=== PATIENT | female | born 1960 | race Caucasian/White ===

== ENCOUNTER → 2018-01-29 13:03 | Outpatient (CLI) | payer MEDICARE, MEDICAID, SELFPAY ==
--- NOTE | 2018-01-29 13:14 | RAD_ITS ---
STUDY: X-RAY - LUMBAR SPINE REASON FOR EXAM: Female, 57 years old. Unable to straighten hips stand straight 6-8 weeks. Difficulty walking. TECHNIQUE: 5 view(s) of the lumbar spine were obtained. COMPARISON: None FINDINGS: Normal lumbar lordosis. There is no substantial scoliosis. There is a normal alignment of the vertebrae. Minimal endplate spondylosis. Is minimal disc space narrowing at multiple levels. There is no evidence of acute fracture or loss of vertebral axial height. There is no demonstrated spondylolysis of the pars interarticulares. There is atherosclerotic calcification of the abdominal aorta without a demonstrated aneurysm. RAD/L/S Spine Min 4 Views IMPRESSION: Degenerative changes of the spine, as detailed above. Electronically Signed: Colt Mirza DO at 15:51 EDT Tel [phone], Service support ,
--- NOTE | 2018-01-29 13:14 | RAD_ITS ---
STUDY: X-RAY - PELVIS AND BILATERAL HIPS REASON FOR EXAM: Female, 57 years old. Unable to straighten the hips. Painful walking. TECHNIQUE: Radiological exam, hip, bilateral, with pelvis when performed; 3-4 views COMPARISON: None. FINDINGS: There is a large amount of feces seen within the colon. Normal visualized soft tissue structures. There are atherosclerotic vascular calcifications. Normal bilateral iliac wings, sacroiliac joints and visualized sacrum. Normal bilateral superior and inferior pubic rami. Normal pubic symphysis. Normal bilateral ischial tuberosities. Normal visualized right femoral head. Normal right acetabulum. Normal right hip joint. Normal visualized left femoral head. Normal left acetabulum. Normal left hip joint. RAD/Hips B/L min 2 views w/ Pelvis IMPRESSION: Normal x-ray examination of the pelvis and bilateral hips. Electronically Signed: Colt Mirza DO at 15:54 EDT Tel [phone], Service support ,
== END ==
PROVIDERS: Family Provider Family Medicine; PCP Family Medicine; Visit Provider Family Medicine
DX: M51.36 Other intervertebral disc degeneration, lumbar region (principal); M25.559 Pain in unspecified hip
CPT/HCPCS: 72110; 73521

== ENCOUNTER → 2018-02-18 15:29 | Outpatient (CLI) | payer MEDICARE, MEDICAID, SELFPAY ==
--- NOTE | 2018-02-18 15:32 | US_ITS ---
STUDY: THYROID ULTRASOUND REASON FOR EXAM: Female, 57 years old. Nodule TECHNIQUE: Ultrasound evaluation of the thyroid was performed with real-time and static bergman-scale imaging. COMPARISON: None. FINDINGS: RIGHT LOBE: The right lobe of the thyroid gland measures 4.7 x 2.2 x 2.5 cm. There is a homogeneous echotexture. There are no demonstrated solid, cystic or complex lesions. LEFT LOBE: The left lobe of the thyroid gland measures 3.6 x 1.4 x 1.7 cm. There is a homogeneous echotexture. There are no demonstrated solid, cystic or complex lesions. ISTHMUS: The isthmus measures 3 mm . The regional lymph nodes are normal. US/Thyroid IMPRESSION: Normal ultrasound examination of the thyroid. Electronically Signed: Eris De Dios MD at 21:33 EDT , Service support ,
== END ==
PROVIDERS: Family Provider Family Medicine; PCP Family Medicine; Visit Provider Family Medicine
DX: E04.1 Nontoxic single thyroid nodule (principal)
CPT/HCPCS: 76536

== ENCOUNTER → 2018-11-14 13:06 | Outpatient (CLI) | payer MEDICARE, MEDICAID, SELFPAY ==
--- NOTE | 2018-11-14 13:08 | RAD_ITS ---
STUDY: X-RAY - RIGHT KNEE REASON FOR EXAM: Female, 58 years old. Chronic knee pain. TECHNIQUE: 4 view(s) of the knee. COMPARISON: None. FINDINGS: There is generalized osteopenia. Normal visualized distal femur. Normal visualized proximal tibia and fibula. Normal proximal tibiofibular articulation. There is mild medial compartmental arthrosis. Normal lateral femorotibial compartment. Normal patellofemoral articulation. The soft tissue structures are unremarkable. RAD/Knee 4 or More Views IMPRESSION: Osteopenia with medial compartmental arthrosis. Electronically Signed: Hao Dove MD at 18:00 EDT , Service support ,
--- NOTE | 2018-11-14 13:08 | RAD_ITS ---
STUDY: X-RAY - LEFT KNEE REASON FOR EXAM: Chronic pain, unable to straighten. TECHNIQUE: 4 view(s) of the knee. COMPARISON: None. FINDINGS: There is osteopenia. Normal visualized distal femur. Normal visualized proximal tibia and fibula. Normal proximal tibiofibular articulation. Normal medial femorotibial compartment. Normal lateral femorotibial compartment. Normal patellofemoral articulation. There is vascular calcification. RAD/Knee 4 or More Views IMPRESSION: Osteopenia. Vascular calcification. Otherwise, unremarkable x-ray examination of the left knee. Electronically Signed: Rock Alanis MD at 13:34 EDT Tel , Service support ,
== END ==
PROVIDERS: Family Provider Family Medicine; PCP Family Medicine; Referring Provider Orthopaedic Surgery; Visit Provider Orthopaedic Surgery
DX: M25.562 Pain in left knee (principal); M25.561 Pain in right knee; G89.29 Other chronic pain
CPT/HCPCS: 73564

== ENCOUNTER 2021-06-03 22:19 | Inpatient (IN) | payer MEDICARE, MEDICAID, SELFPAY ==
[2021-06-03 22:20] VITALS: BP 166/99; PULSE 97; RESP 20; TEMP 36.3; O2SAT 98; BMI 19.0
[2021-06-03 22:35] VITALS: TEMP 36.2; O2SAT 97
--- NOTE | 2021-06-03 22:35 | CT_ITS ---
INDICATION: mental status change EXAMINATION: CT BRAIN - CT Head or Brain W/O Contrast Injection TECHNIQUE: Multiple axial images were obtained of the head without intravenous contrast. A radiation dose optimization technique was used for this scan. IV Contrast dosage and agent: None. COMPARISON: No prior head imaging. FINDINGS: BRAIN PARENCHYMA: No intra- or extra-axial hemorrhage. No evidence of acute infarct. No intracranial mass or mass effect. There is preservation of the bergman/white matter interface. There is decreased periventricular white matter hypodensity, especially in the deep periventricular white matter, likely representing chronic small vessel ischemic changes. No hyperdense vessel or other evidence of acute ischemia. Extra-axial, right frontal lobe calcific density, abutting the calvarium, 1.2 cm maximum dimension. Normal adjacent parenchyma. Posterior fossa structures are unremarkable. CSF SPACES: Appropriate for age. No hydrocephalus. Basal cisterns are patent. CALVARIUM, SKULL BASE, PARANASAL SINUSES AND MASTOID AIR CELLS: Clear. No discrete lytic or blastic abnormalities. ORBITS: Both globes, extraocular muscles, optic nerves and retrobulbar fat appear unremarkable. ASPECTS Score for Acute Strokes: 10 CT/Brain/Head without Contrast IMPRESSION: No acute intracranial pathology. Mild decreased periventricular white matter density suggesting chronic small vessel ischemic changes. Extra axial right frontal lobe calcification suggesting old, calcified meningioma. Benign finding. Electronically Signed: Toni Hernandez DO at 0:42 EDT Tel , Service support ,
--- NOTE | 2021-06-03 22:35 | RAD_ITS ---
INDICATION: weakness EXAMINATION/TECHNIQUE: X-RAY - XR Chest 1 View COMPARISON: Chest x-ray 12/11/2016. FINDINGS: LINES/DEVICES: None. LUNGS: Symmetrically increased lung volumes consistent with air trapping and mild hyperlucency in the upper lobes consistent with moderately advanced emphysematous disease. No airspace disease, nodule or mass. No pleural effusion. No pneumothorax. MEDIASTINUM AND CARDIOVASCULAR STRUCTURES: Normal size and contour of the cardiomediastinal silhouette. No evidence of pulmonary vascular congestion. BONES AND SOFT TISSUES: No abnormality within limits of the exam. RAD/Chest 1 View (Portable) IMPRESSION: 1. Moderately advanced emphysematous disease. 2. Lungs otherwise clear. Electronically Signed: Toni Hernandez DO at 0:28 EDT Tel , Service support ,
--- NOTE | 2021-06-03 22:35 | EKG12_ITS ---
Test Reason : Blood Pressure : / mmHG Vent. Rate : 102 BPM Atrial Rate : 102 BPM P-R Int : 174 ms QRS Dur : 086 ms QT Int : 308 ms P-R-T Axes : 081 080 075 degrees QTc Int : 401 ms Somatic/Motion Artifact Sinus tachycardia Biatrial enlargement Left ventricular hypertrophy Nonspecific ST and T wave abnormality Abnormal ECG Confirmed by SYMONE ALEMAN, MILTON ([id number]), video news editor ALEXANDER ALLEN ([id number]) on 06/07/2021 9:20:37 AM Referred By: RENETTA Confirmed By:MILTON ASHBY MD
--- NOTE | 2021-06-03 22:37 | EX.ED.DYSGE1 ---
HPI History of Present Illness Chief Complaint: Alt LOC Informant: EMS Narrative Narrative: Patient has been extremely weak and confused, myalgias, unknown period of time. She lives with a family member who called EMS, she told EMS she did not want to go to the hospital but she was very confused and did not have the capacity to make decision for self, family wanted her cared for and they are not present at this time the patient nods in response but answers very few questions and review of systems is basically unobtainable from her. [facility] Medical History (Updated 06/04/21 @ 01:[address] Cortez Morrison MD) COPD (chronic obstructive pulmonary disease) H/O frozen left shoulder HTN (hypertension) Medical History unable to obtain Home Medications albuterol sulfate 2 puff INHALATION DAILY 06/03/21 [History Last Taken Unknown] fluticasone propion-salmeterol [Advair Diskus] 1 inh INHALATION BID 06/03/21 [History Last Taken Unknown] lisinopril 20 mg PO DAILY 06/03/21 [History Last Taken Unknown] umeclidinium [Incruse Ellipta] 1 inh INHALATION DAILY 06/03/21 [History Last Taken Unknown] Allergy/AdvReac Type Severity Reaction Status Date / Time No Known Allergies Allergy Verified 06/03/21 22:30 Surgical History unable to obtain Social History Smoking Status: Current every day smoker tobacco type: cigarettes ROS ROS ED Review of Systems ROS Unobtainable: due to mental status EXAM Physical Exam Const Vital Signs: 06/03/21 22:20 06/03/21 22:35 06/03/21 22:39 Temperature 97.4 F L 97.1 F L Temperature Source Temporal Temporal Pulse Rate 97 Respiratory Rate 20 H Respiratory Effort Normal Respiratory Pattern Normal Blood Pressure 166/99 H Blood Pressure Mean 121 Pulse Ox 98 97 Oxygen Delivery Method Nasal Cannula Nasal Cannula Oxygen Flow Rate (L/min) 3 3 Fraction of Inspired Oxygen (FIO2) 06/03/21 22:43 06/03/21 23:44 06/03/21 23:45 Temperature 98.1 F Temperature Source Temporal Pulse Rate 104 H Respiratory Rate 15 Respiratory Effort Respiratory Pattern Blood Pressure 172/81 H Blood Pressure Mean 111 Pulse Ox 91 94 Oxygen Delivery Method Nasal Cannula Nasal Cannula Oxygen Flow Rate (L/min) 3 3 Fraction of Inspired Oxygen (FIO2) 06/04/21 00:04 06/04/21 00:07 06/04/21 00:08 Temperature 98.1 F Temperature Source Temporal Pulse Rate 100 102 H Respiratory Rate 22 H 27 H Respiratory Effort Respiratory Pattern Tachypnea Blood Pressure 178/86 H Blood Pressure Mean 116 Pulse Ox 82 96 Oxygen Delivery Method Oxygen Flow Rate (L/min) Fraction of Inspired Oxygen (FIO2) 45 Positive well nourished, well developed and cachectic Constitutional Narrative: Malaised-appearing, no distress General Appearance ED: well developed, cachectic and NAD Nutritional Appearance: cachectic HEENT Reports moist mucous membranes normocephalic and atraumatic Eyes PERRL and EOMs intact bilaterally Neck full ROM and supple Resp normal respiratory effort and clear to auscultation bilaterally Resp Narrative: Extremely diminished bilaterally and symmetrically. Trachea midline. No respiratory distress. Cardio regular rate and regular rhythm Cardio Narrative: Systolic decrescendo murmur Rate: Negative for tachycardic GI non-tender and non-distended Auscultation: normoactive bowel sounds Palpation: soft Back/Spine no CVA tenderness General Back: other FROM Extremity normal to inspection and no calf tenderness General Extremety ED: Negative for edema, pulses abnormal or tenderness General Extremity: Negative for edema or pulses abnormal Neuro CN's II-XII intact bilaterally and no sensory deficits noted Neuro Narrative: Does not speak in response to questions. Nods yes that she is feeling very weak. Moves all 4 extremities and sensory intact, but very limited effort and movement due to generalized weakness limiting exam. [place] Coma Scale: document GCS findings To Voice Obeys Commands None 10 Sensorium / Orientation: awake, alert, oriented to person and orientation impaired; Negative for oriented to place or oriented to time Motor Exam: strength 5/5 throughout Skin no rashes or lesions noted and no wounds MDM MDM MDM Narrative Medical decision making narrative: Septic work-up obtained as well as a CT of the head. Screening labs show a bicarb that is extremely high suggestive of severe CO2 retention and a COPD here who has chronic CO2 retention at baseline. An ABG was obtained then, she was immediately placed on BiPAP, the ABG confirms hypercapnia with a PCO2 of 166, and pH 7.215. Oxygenation is good on a nasal cannula and she is in no respiratory distress so we did not intubate her and place her on BiPAP, which resulted in her becoming more alert in the emergency department. EKG shows artifactual findings in leads V3 and V4, the EMS EKGs did not show any STEMI, and I do not think this is consistent with STEMI although the ST segments do look elevated and are inconsistent from beat to beat. Therefore did not call a STEMI, troponin returned within normal limits. Chest x-ray shows no infiltrate at this time. She was given Solu-Medrol discussed with hospitalist for PCU admission. Discussed w/ sister who arrived later; pt has been debilitated recently w/ worsening BLE contractures and inability to walk. Lab Data Attestation: I reviewed the patient's lab results. Labs: Laboratory Results - last 24 hr 06/03/21 06/03/21 06/03/21 22:40 22:40 22:40 WBC 6.8 RBC 3.92 L Hgb 12.5 Hct 43.7 MCV 111.5 H MCH 31.9 MCHC 28.6 L RDW Std Deviation 51.7 H RDW Coeff of Rachell 12.5 Plt Count 137 L MPV 10.4 Immature Gran % (Auto) 2.900 H Neut % (Auto) 72.4 H Lymph % (Auto) 9.4 L [place] % (Auto) 14.7 H Eos % (Auto) 0.0 Baso % (Auto) 0.6 Absolute Neuts (auto) 4.9 Absolute Lymphs (auto) 0.64 L Nucleated RBC % 0 Sodium 142 Potassium 5.1 Chloride 87 L Carbon Dioxide > 45.0 H* Anion Gap TNP BUN 17 Creatinine 0.28 L Estim Creat Clear Calc 165.58 Est GFR (MDRD) Af Amer 308 Est GFR (MDRD) Non-Af 255 BUN/Creatinine Ratio 59.9 H Glucose 121 H Lactic Acid 0.4 Calcium 9.5 Total Bilirubin 0.40 AST 27 ALT 23 Alkaline Phosphatase 70 Troponin I High Sens Total Protein 7.1 Albumin 3.7 Globulin 3.4 Albumin/Globulin Ratio 1.1 Urine Color Urine Clarity Urine pH Ur Specific [place] Urine Protein Urine Glucose (UA) Urine Ketones Urine Occult Blood Urine Nitrite Urine Bilirubin Urine Urobilinogen Ur Leukocyte Esterase Urine RBC Urine WBC Ur Squamous Epith Cells Amorphous Sediment Urine Bacteria Hyaline Casts Urine Mucus 06/03/21 06/03/21 22:40 22:56 WBC RBC Hgb Hct MCV MCH MCHC RDW Std Deviation RDW Coeff of Rachell Plt Count MPV Immature Gran % (Auto) Neut % (Auto) Lymph % (Auto) [place] % (Auto) Eos % (Auto) Baso % (Auto) Absolute Neuts (auto) Absolute Lymphs (auto) Nucleated RBC % Sodium Potassium Chloride Carbon Dioxide Anion Gap BUN Creatinine Estim Creat Clear Calc Est GFR (MDRD) Af Amer Est GFR (MDRD) Non-Af BUN/Creatinine Ratio Glucose Lactic Acid Calcium Total Bilirubin AST ALT Alkaline Phosphatase Troponin I High Sens 20 Total Protein Albumin Globulin Albumin/Globulin Ratio Urine Color Yellow Urine Clarity Clear Urine pH 5.0 Ur Specific [place] 1.025 Urine Protein 100 H Urine Glucose (UA) Normal Urine Ketones 5 H Urine Occult Blood 250 H Urine Nitrite Negative Urine Bilirubin Negative Urine Urobilinogen 1 H Ur Leukocyte Esterase Negative Urine RBC 10-25 SEEN Urine WBC 0 SEEN Ur Squamous Epith Cells 0-5 SEEN Amorphous Sediment 1+ Urine Bacteria 2+ Hyaline Casts 10-25 SEEN Urine Mucus 1+ Radiography Chest X-Ray - ED: 1 View, Read by ED Physician, No Acute Disease and Chronic Changes Diagnostic Testing: Clinical Impression(s) from Imaging Studies Brain CT 06/03/21 22:35 IMPRESSION: No acute intracranial pathology. Mild decreased periventricular white matter density suggesting chronic small vessel ischemic changes. Extra axial right frontal lobe calcification suggesting old, calcified meningioma. Benign finding. Electronically Signed: Toni Hernandez DO at 0:42 EDT Tel , Service support , Chest X-Ray 06/03/21 22:35 IMPRESSION: 1. Moderately advanced emphysematous disease. 2. Lungs otherwise clear. Electronically Signed: Toni Hernandez DO at 0:28 EDT Tel , Service support , EKG Initial EKG: Attestation: I personally reviewed and interpreted this EKG as follows: Interpretation: Sinus Rhythm, No Acute Injury Pattern and S-T Elevation (V3-4, likely artifactual) Discharge Plan Triage Chief Complaint: Alt LOC Other Complaint: Mental Status Change ED Provider: Cortez Morrison Dx/Rx/DC Orders Clinical Impression: Acute hypercapnic respiratory failure, Encephalopathy acute, COPD with acute exacerbation, Debility Prescriptions: No Action fluticasone propion-salmeterol [Advair Diskus] 250-50 mcg/dose Blister With Device 1 inh INHALATION BID RF: 0 lisinopril 20 mg Tablet 20 mg PO DAILY RF: 0 albuterol sulfate 90 mcg/actuation Hfa Aerosol Inhaler 2 puff INHALATION DAILY RF: 0 Incruse Ellipta 62.5 mcg/actuation Blister With Device 1 inh INHALATION DAILY RF: 0 Primary Care Provider: Care Physician,No Primary Referrals: Care Physician,No Primary [Primary Care Provider] - Disposition Disposition: Acute Care Hospital
[2021-06-03 22:43] VITALS: O2SAT 91
--- NOTE | 2021-06-03 22:46 | ED.RN ---
twin sister present. reports pt has has progressively more sob and weakness. pt has been falling. does use a wc but usually can tranfer in and out of it and has been falling when doing so lately. lethargic.
[2021-06-03] MEDS: 0.9% Normal Saline 1,000 ML 100 ML IV (22:49)
[2021-06-03 23:11] LABS: White Blood Cells 0 SEEN /hpf (0-5)
[2021-06-03 23:14] LABS: Color, Urine Yellow (Yellow); Glucose, Dipstick Normal (Normal); Ketone-Dipstick 5 mg/dl (Negative); Leukocyte Esterase-Dipstick Negative /ul (Negative); Nitrite-Dipstick Negative (Negative); Occult Blood-Urine 250 /ul (Negative); Protein-Dipstick 100 mg/dl (Negative); Specific Gravity, Urine 1.025 (1.002-1.030); Urine Bilirubin Dipstick Negative (Negative); Urine Clarity Clear (Clear); Urine Urobilinogen 1 mg/dl (Normal)
[2021-06-03 23:24] LABS: Absolute Lymphocyte Count 0.64 X10^3/uL (0.83-4.51); Absolute Neutrophil Count 4.9 X10^3/uL (2.0-7.7); Basophil# 0.04 X10^3/uL; Basophil% 0.6 % (0-1); Hematocrit 43.7 % (37-47); Hemoglobin 12.5 g/dL (12.0-15.0); Lymphocyte # 0.64 X10^3/ul (0.83-4.51); Lymphocyte % 9.4 % (19-41); Mean Corp Hgb Conc 28.6 g/dL (32-36); Mean Corpuscular Hgb 31.9 pg (27.0-32.0); Mean Corpuscular Volume 111.5 fL (81-99); Mean Platelet Vol. 10.4 fl (6.2-12.0); Monocyte% 14.7 % (0-10); NRBC Flagged by Analyzer 0 % (0-5); Neutrophil # 4.92 X10^3/uL (2.7-7.7); Neutrophil % 72.4 % (47-70); Platelet Count 137 K/mm3 (150-450); RBC Distribution Width CV 12.5 % (11.6-14.6); RBC Distribution Width SD 51.7 fl (35.1-43.9); Red Blood Count 3.92 M/mm3 (4.2-5.4); White Blood Count 6.8 K/mm3 (4.4-11.0)
[2021-06-03 23:27] LABS: Amorphous Sediment 1+; Bacteria 2+ /hpf (None Seen); Hyaline Cast 10-25 SEEN /lpf (0-5); Mucous, Urine 1+ /hpf (<or=2+); Red Blood Cells-Urine 10-25 SEEN /hpf (0-5); Squamous Epithelial Cells - UA 0-5 SEEN /hpf (5-10)
[2021-06-03 23:28] LABS: ALB/GLOB Ratio 1.1 RATIO (0.9-2.4); AST(SGOT) 27 U/L (15-37); Alanine Aminotransfer ALT/SGPT 23 U/L (13-56); Albumin, Serum 3.7 g/dL (3.2-5.0); Alkaline Phosphatase 70 U/L (45-117); BUN 17 mg/dL (7-18); BUN/Creat Ratio 59.9 RATIO (10-20); Calcium,Total 9.5 mg/dL (8.5-10.1); Carbon Dioxide > 45.0 mmol/L (21.0-32.0); Chloride 87 mmol/L (98-107); Creatinine, Serum 0.28 mg/dL (0.55-1.02); EST Glomerular Filtration Rate 255 mL/min (>60); Est Glom Filt Rate - Afr Amer 308 mL/min (>60); Estimated Creatinine Clearance 165.58 ml/min; Globulin 3.4 g/dL (2.2-4.2); Glucose 121 mg/dL (74-106); Potassium 5.1 mmol/L (3.5-5.1); Protein, Total 7.1 g/dL (6.4-8.2); Sodium Level 142 mmol/L (136-145)
[2021-06-03 23:29] LABS: Lactic Acid 0.4 mmol/L (0.4-1.9)
[2021-06-03 23:44] VITALS: TEMP 36.7
[2021-06-03 23:45] VITALS: BP 172/81; PULSE 104; RESP 15; O2SAT 94
[2021-06-04] VITALS (23 sets, daily range): BP systolic 112–178; BP diastolic 64–97; PULSE 100–120; RESP 16–27; TEMP 36.4–37.5; O2SAT 82–96; BMI 17.9
--- NOTE | 2021-06-04 00:05 | ED.RN ---
pt sats decreaed progressively to 82%. placed on nrb sats 96%. called respiratory for bipap
--- NOTE | 2021-06-04 00:08 | CPS ---
Critical ABG values, Dr. Morrison aware.
[2021-06-04] MEDS: MethylPREDNISolone 125 MG/2 ML Vial IV (00:40)
[2021-06-04 00:56] LABS: Troponin-I HS 20 pg/mL (3.0-54.0)
--- NOTE | 2021-06-04 01:15 | HP.PCM_ITS ---
Documented by User: Martha De Los Santos NP-C 06/04/21 01:29 HPI - General General Date of Admission: 06/04/21 Date of Service: 06/04/21 Chief Complaint: Altered mental status HPI Narrative ARTURO CURRY, is a 60 F who presents extremely weak and confused. EMS states that her family called because they were concerned about her mental status and the fact that the patient was not responsive. Patient continues to be confused ever she is more alert during examination. Sister at bedside states that she would want everything done in regards to CODE STATUS. Patient is currently on BiPAP, no distress noted. [facility] Medical History COPD (chronic obstructive pulmonary disease) H/O frozen left shoulder HTN (hypertension) Medical History unable to obtain Home Medications albuterol sulfate 2 puff INHALATION DAILY 06/03/21 [History Last Taken Unknown] fluticasone propion-salmeterol [Advair Diskus] 1 inh INHALATION BID 06/03/21 [History Last Taken Unknown] lisinopril 20 mg PO DAILY 06/03/21 [History Last Taken Unknown] umeclidinium [Incruse Ellipta] 1 inh INHALATION DAILY 06/03/21 [History Last Taken Unknown] Allergy/AdvReac Type Severity Reaction Status Date / Time No Known Allergies Allergy Verified 06/03/21 22:30 Surgical History unable to obtain no surgical history Social History Smoking Status: Current every day smoker tobacco type: cigarettes ROS Review of Systems ROS Unobtainable: due to mental status Vital Signs Vital Signs Vital Signs: 06/03/21 22:20 06/03/21 22:35 06/03/21 22:39 Temperature 97.4 F L 97.1 F L Temperature Source Temporal Temporal Pulse Rate 97 Respiratory Rate 20 H Respiratory Effort Normal Respiratory Pattern Normal Blood Pressure 166/99 H Blood Pressure Mean 121 Pulse Ox 98 97 Oxygen Delivery Method Nasal Cannula Nasal Cannula Oxygen Flow Rate (L/min) 3 3 Fraction of Inspired Oxygen (FIO2) 06/03/21 22:43 06/03/21 23:44 06/03/21 23:45 Temperature 98.1 F Temperature Source Temporal Pulse Rate 104 H Respiratory Rate 15 Respiratory Effort Respiratory Pattern Blood Pressure 172/81 H Blood Pressure Mean 111 Pulse Ox 91 94 Oxygen Delivery Method Nasal Cannula Nasal Cannula Oxygen Flow Rate (L/min) 3 3 Fraction of Inspired Oxygen (FIO2) 06/04/21 00:04 06/04/21 00:07 06/04/21 00:08 Temperature 98.1 F Temperature Source Temporal Pulse Rate 100 102 H Respiratory Rate 22 H 27 H Respiratory Effort Respiratory Pattern Tachypnea Blood Pressure 178/86 H Blood Pressure Mean 116 Pulse Ox 82 96 Oxygen Delivery Method Oxygen Flow Rate (L/min) Fraction of Inspired Oxygen (FIO2) 45 Weight Weight: 111 lb Body Mass Index (BMI) 19.0 Physical Exam Const alert and no apparent distress General Appearance: cooperative and frail Exam Limitations: altered mental status HEENT normocephalic and head/scalp atraumatic Eyes conjunctivae normal and no scleral icterus Neck supple General: trachea midline Resp Effort and Inspection: symmetric chest movement, tachypneic and decreased respiratory effort Auscultation: diminished lung sounds Cardio regular rate, regular rhythm, S1 normal heart sound, S2 normal heart sound and peripheral pulses 2+ throughout Rate: tachycardic GI normal to inspection, nondistended, normoactive bowel sounds, soft to palpation and non-tender Extremity normal capillary refill and no clubbing, cyanosis or edema General Extremity: no tenderness to palpation of joints or extremities Skin General Skin Exam: no breakdown and turgor normal Lesions: no lesions Rashes: no rashes Neuro moves all extremities, no focal motor deficits and no sensory deficits noted Psych cooperative Results Lab / Micro Data Result Diagrams: 06/03/21 22:40 06/03/21 22:40 Labs: Laboratory Results - last 24 hr 06/03/21 22:40: WBC 6.8, RBC 3.92 L, Hgb 12.5, Hct 43.7, MCV 111.5 H, MCH 31.9, MCHC 28.6 L, RDW Std Deviation 51.7 H, RDW Coeff of Rachell 12.5, Plt Count 137 L, MPV 10.4, Immature Gran % (Auto) 2.900 H, Neut % (Auto) 72.4 H, Lymph % (Auto) 9.4 L, Coos % (Auto) 14.7 H, Eos % (Auto) 0.0, Baso % (Auto) 0.6, Absolute Neuts (auto) 4.9, Absolute Lymphs (auto) 0.64 L, Nucleated RBC % 0 06/03/21 22:40: Sodium 142, Potassium 5.1, Chloride 87 L, Carbon Dioxide > 45.0 H*, Anion Gap TNP, BUN 17, Creatinine 0.28 L, Estim Creat Clear Calc 165.58, Est GFR (MDRD) Af Amer 308, Est GFR (MDRD) Non-Af 255, BUN/Creatinine Ratio 59.9 H, Glucose 121 H, Calcium 9.5, Total Bilirubin 0.40, AST 27, ALT 23, Alkaline Phosphatase 70, Total Protein 7.1, Albumin 3.7, Globulin 3.4, Albumin/Globulin Ratio 1.1 06/03/21 22:40: Lactic Acid 0.4 06/03/21 22:40: Troponin I High Sens 20 06/03/21 22:56: Urine Color Yellow, Urine Clarity Clear, Urine pH 5.0, Ur Specific [place] 1.025, Urine Protein 100 H, Urine Glucose (UA) Normal, Urine Ketones 5 H, Urine Occult Blood 250 H, Urine Nitrite Negative, Urine Bilirubin Negative, Urine Urobilinogen 1 H, Ur Leukocyte Esterase Negative, Urine RBC 10- 25 SEEN, Urine WBC 0 SEEN, Ur Squamous Epith Cells 0-5 SEEN, Amorphous Sediment 1+, Urine Bacteria 2+, Hyaline Casts 10-25 SEEN, Urine Mucus 1+ Micro: Microbiology 06/03/21 22:53 Interface Orders SARS-CoV-2 Antigen (Rapid) - Final Radiology Impression Brain CT 06/03/21 22:35 IMPRESSION: No acute intracranial pathology. Mild decreased periventricular white matter density suggesting chronic small vessel ischemic changes. Extra axial right frontal lobe calcification suggesting old, calcified meningioma. Benign finding. Electronically Signed: Toni Hernandez DO at 0:42 EDT Tel , Service support , Chest X-Ray 06/03/21 22:35 IMPRESSION: 1. Moderately advanced emphysematous disease. 2. Lungs otherwise clear. Electronically Signed: Toni Hernandez DO at 0:28 EDT Tel , Service support , Assessment & Plan Assessment/Plan (1) Acute hypercapnic respiratory failure: (2) Debility: PLAN: 1. Acute hypercapnic respiratory failure secondary to COPD exacerbation -Admit to PCU -Continue BiPAP, oxygen therapy per protocol. Patient wears 3 L nasal cannula oxygen at baseline -Encourage incentive spirometry and Pep therapy once patient is off BiPAP -Sputum culture and blood cultures pending -ABG ordered for 2 AM approximately 2 hours after patient was placed on BiPAP -CBC and BMP daily -Scheduled DuoNeb nebulizer treatments along with as needed albuterol nebulizer treatments ordered -Continue Advair Diskus -IV Solu-Medrol -IV Levaquin ordered -Maintain Buenrostro catheter -Normal saline 100 mL/h -Reposition every 2 hours 2. Debility -PT and OT to eval and treat -Case management consulted for probable ECF placement upon discharge 3. Hypertension -Continue lisinopril -Vital signs per protocol DVT prophylaxis-subcu Lovenox This patient was seen by SANTINO Preciado under the supervision of Dr. Fajardo. Documented by User: Dr. Stanford Fajardo MD 06/04/21 02:08 HPI - General General Date of Admission: 06/04/21 [facility] Medical History COPD (chronic obstructive pulmonary disease) H/O frozen left shoulder HTN (hypertension) Medical History unable to obtain Home Medications albuterol sulfate 2 puff INHALATION DAILY 06/03/21 [History Last Taken Unknown] fluticasone propion-salmeterol [Advair Diskus] 1 inh INHALATION BID 06/03/21 [History Last Taken Unknown] lisinopril 20 mg PO DAILY 06/03/21 [History Last Taken Unknown] umeclidinium [Incruse Ellipta] 1 inh INHALATION DAILY 06/03/21 [History Last Taken Unknown] Allergy/AdvReac Type Severity Reaction Status Date / Time No Known Allergies Allergy Verified 06/03/21 22:30 Surgical History unable to obtain Social History Smoking Status: Current every day smoker tobacco type: cigarettes Results Lab / Micro Data Result Diagrams: 06/03/21 22:40 06/03/21 22:40 Charges/Coding Addendum Addendum: Patient was seen and examined independently. I agree with assessment and plan by SANTINO Preciado Patient is a 60-year-old female with a significant history of COPD on 3.5 L nasal cannula oxygen; and hypertension who presents to the emergency department with 1 day history of progressively worsening lethargy. Reportedly patient stayed in bed all day; and even urinated in her bed which is unusual for her. She became incoherent later in the day. Reported patient had multiple falls in the week of presentation. Physical exam: General: Cachectic Head: Normocephalic, atraumatic, no tenderness Eyes: PERRLA, EOMI ENT, no trauma, no rhinorrhea Neck: Nontender, full range of motion, no spinal tenderness, deformities, step- off CVS: Tachycardia . S1-S2 present. No murmur, gallop or rub. Respiratory : Diminished. chest wall nontender. Abdomen: Soft, nontender, nondistended, normal bowel sounds, no masses : Deferred Back: Nontender, no CVA tenderness, no midline spinal tenderness, deformities, step-offs Extremities: Cachectic with muscle wasting. Nontender full range of motion, no trauma Skin: Normal color, no trauma, abrasions Neuro: Lethargic, oriented, cranial nerves II through XII grossly intact. Psychiatry: Non-talkative. Depressed. Acute encephalopathy secondary to acute on chronic hypoxemic and hypercapnic respiratory failure ABG showed a PCO2 of 165.9 and PO2 of 46.1. pH is 7.215. Bicarb on BMP was more than 45 Patient on BiPAP at emergency department and continued. Solu-Medrol around the clock ordered. DuoNeb [id number] ordered. Albuterol prn ordered. Levaquin IV ordered. Severe protein calorie malnutrition BMI of 17.9. Muscle wasting. Ensure Enlive ordered. Hypertension Blood pressure is not within goal Lisinopril continued. As needed hydralazine ordered. Trend blood pressure and adjust blood pressure medications. DVT prophylaxis: Subcutaneous Lovenox ordered. Visit Charges Inpatient E&M: 18493 Init Hosp L3
[2021-06-04] MEDS: levoFLOXacin IV 500 MG/100 ML BAG 100 MG IV ×2 (02:08→21:08)
[2021-06-04 03:02] LABS: Troponin-I HS 11 pg/mL (3.0-54.0)
--- NOTE | 2021-06-04 03:05 | PCS.PANDOC ---
PANDEMIC DOCUMENTATION INITIATED: Date: 03/21/2021 Time: 190
--- NOTE | 2021-06-04 04:23 | CPS ---
Critical ABG values noted. Martha De Los Santos PROPERTY LOSS INSURANCE CLAIM ADJUSTER notified
[2021-06-04 04:46] LABS: Allen Test POS; Blood Gas Specimen Type ART; O2 Delivery Device Bi Pap; RR 16; SITE L RADIAL
[2021-06-04 04:47] LABS: EPAP 8; FI02 45; IPAP 16; PO2 71 mmHG (75-100); pCO2 96.6 mmHg (35-45); pH 7.36 (7.35-7.45)
[2021-06-04 04:48] LABS: Base Excess 29 mmol/L (-2 to +2); Bicarbonate 54.5 mmol/L (22-26); SO2 91 % (95-99); Total Carbon Dioxide > 50 mmol/L
[2021-06-04 05:20] LABS: Absolute Lymphocyte Count 0.19 X10^3/uL (0.83-4.51); Absolute Neutrophil Count 6.8 X10^3/uL (2.0-7.7); Basophil# 0.02 X10^3/uL; Basophil% 0.3 % (0-1); Hematocrit 37.5 % (37-47); Hemoglobin 10.5 g/dL (12.0-15.0); Lymphocyte # 0.19 X10^3/ul (0.83-4.51); Lymphocyte % 2.7 % (19-41); Mean Corpuscular Hgb 31.3 pg (27.0-32.0); Mean Corpuscular Volume 111.9 fL (81-99); Mean Platelet Vol. 10.2 fl (6.2-12.0); Monocyte# 0.13 X10^3/uL; Monocyte% 1.8 % (0-10); NRBC Flagged by Analyzer 0 % (0-5); Neutrophil # 6.77 X10^3/uL (2.7-7.7); Neutrophil % 94.6 % (47-70); POSITIVE DIFFERENTIAL YES; Platelet Count 123 K/mm3 (150-450); RBC Distribution Width CV 12.4 % (11.6-14.6); RBC Distribution Width SD 51.6 fl (35.1-43.9); Red Blood Count 3.35 M/mm3 (4.2-5.4); White Blood Count 7.2 K/mm3 (4.4-11.0)
[2021-06-04 05:21] LABS: Differential Indicated SCAN CRITERIA MET
[2021-06-04 05:32] LABS: Differential Comment SCANNED; Hypochromasia RARE
[2021-06-04 05:35] LABS: Troponin-I HS 21 pg/mL (3.0-54.0)
[2021-06-04 05:46] LABS: BUN 21 mg/dL (7-18); BUN/Creat Ratio 63.8 RATIO (10-20); Carbon Dioxide > 45.0 mmol/L (21.0-32.0); Chloride 91 mmol/L (98-107); Creatinine, Serum 0.33 mg/dL (0.55-1.02); EST Glomerular Filtration Rate 215 mL/min (>60); Est Glom Filt Rate - Afr Amer 260 mL/min (>60); Estimated Creatinine Clearance 131.71 ml/min; Glucose 121 mg/dL (74-106); Potassium 4.9 mmol/L (3.5-5.1); Sodium Level 142 mmol/L (136-145)
[2021-06-04 06:50] LABS: Allen Test Positive; Base Excess > 30 mmol/L (-2 to +2); Bicarbonate 67.1 mmol/L (22-26); Blood Gas Specimen Type ART; O2 Delivery Device Cannula; PO2 46 mmHG (75-100); SITE R Radial; SO2 64 % (95-99); Total Carbon Dioxide > 50 mmol/L; pH 7.22 (7.35-7.45)
[2021-06-04 07:01] LABS: pCO2 165.9 mmHg (35-45)
[2021-06-04] MEDS: Ipratropium/Albuterol Sulfate 3 ML AMPUL.NEB INHALATION ×4 (07:25→19:38)
--- NOTE | 2021-06-04 08:49 | CPS ---
pt placed on 4 lpm. saturation 93%. nurse aware of change
[2021-06-04] MEDS: 0.9% Normal Saline 1,000 ML 100 ML IV ×2 (09:27→18:49)
--- NOTE | 2021-06-04 14:15 | CASEMGMT ---
Addendum entered by Aliyah Greene 06/04/21 15:15: Charli, son, reports that patient will sometimes not smoke any and then sometimes will role a cigarettes but just takes a couple of puffs. Aliyah Greene MSW ESCOBAR Original Note: MARCUS Note Referral Source: CM Referral Reason: Discharge Planning Information Source: Patient's son, Charli. MARCUS met with patient's son in the lobby at [facility] (no other patient's or family members were present and son was comfortable with the interview setting Family Present: SonCharli Next of Kin: SonCharli Living Will/HCPOA: Charli said that patient has completed the HCPOA/Living Will but was scheduled to sign it on 06/06/21. Charli said that the Home Health Aide had made arrangements for the Advanced Directives to be completed. The Advanced Directives are NOT signed. PCP Name: Charli said that he is unsure of the name of the MD that comes to the home. Charli said I live with her but I have let the aide deal with her medical things and indicated that he is aware that he needs to be more involved with medical information. Specialist: None per son Insurance: [employer] Pharmacy: [place] Patient resides in [address] [facility]. Patient's son, Charli and his girlfriend reside with patient. Charli said brenden the works first shift doing lawn care and his girlfriend is a DATA ENTRY TECHNICIAN working 3rd shift at [facility] [employer]. Charli indicated that there is one little step into the house and everything else is on the same floor. ADL's: Charli said that patient has not been able to stand or walk straight and he felt it was related to her never straightened her knees out.. her knees are always bent. Charli said that patient had a frozen shoulder, 2 years ago, and since that patient has not been independent in her ADL'sa. Charli said that patient doesn't want to wash her own hair or make her own meals. He voiced he feels that patient has gotten lazy. Patient has a shower chair but reports patient doesn't use it much, BSC, rails/grab bars, hand held shower, walker and wheelchair. He reports that patient has a lazy boy chair but they are looking to get her a lift chair. Charli said that he recently became aware that patient was urinating on herself but the aide told him that was happening previously but he was unaware of it. Charli said that lately patient has not been able to get up and go to the bathroom herself and that has been going on for a couple of weeks now. Patient said that he also fixes patient's food. Patient is on 3 1/2 L of home oxygen at home. Charli reports that they use [employer]. 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 Transportation: Charli said that patient hasn't gone out of the house for one year. Patient does not drive. Patient's insurance assists with transport. Previous SNF: None Home Health or Aide: Charli reports that there is an aide 3 hours a day 5 days a week Sunday through Sunday but he is unaware of the name of the home health agency. MARCUS discussed discharge planning. Charli said that he would like patient to come home as long as it is safe. He said that he is not a medical doctor so I don't know what she needs to eat .. we just fix food that we normally fix. MARCUS discussed that there may need to be some rehab in SNF. Charli verbalized understanding. Charli was provided with list of SNF in [facility]. He was advised to follow up with weekday social work assistant on Sunday. Charli verbalized understanding. Plan: To be determined. Possible SNF. Aliyah CODY
--- NOTE | 2021-06-04 19:42 | PN.HOSP_ITS ---
Hospitalist Note Patient was seen and examined today, she is currently off BiPAP, I reviewed her medical record and noted that she was severely hypercapnic on admission, I ordered a repeat blood gas but respiratory therapy was unable to obtain 1. Patient appears extremely cachectic and debilitated for her age. I talked with nutritional services who confirmed that the patient has severe protein and caloric malnutrition. I called her son who is her contact, he is her only child, he confirmed that the patient would like to be a full code, I asked him to evaluate her medical condition and told him that if she ever got on a ventilator it is likely that she would never get off the ventilator. Finally, I consulted pulmonary medicine to see the patient, she will need to be placed on BiPAP at night and she will have to have BiPAP on discharge from the hospital- pulmonary medicine states that this is not possible if she goes home, it may be possible if the patient goes to a [place] [facility] [place] for short-term rehab services. I will have to talk to the patient tomorrow concerning this. In the meantime, I will continue the present medical treatment for the patient.
[2021-06-04] MEDS: guaiFENesin 1,200 MG Tablet 1200 MG PO (21:07)
[2021-06-04] MEDS: Triamcinolone 0.5% Cream 1 APPLIC TOPICAL (21:07)
[2021-06-05] VITALS (18 sets, daily range): BP systolic 79–133; BP diastolic 55–71; PULSE 96–110; RESP 16–22; TEMP 36.8–37.1; O2SAT 92–97
--- NOTE | 2021-06-05 00:13 | CPS ---
pt refused use of bipap at this time
[2021-06-05] MEDS: Ipratropium/Albuterol Sulfate 3 ML AMPUL.NEB INHALATION ×6 (03:06→23:12)
[2021-06-05] MEDS: 0.9% Normal Saline 1,000 ML 100 ML IV ×2 (04:50→15:00)
--- NOTE | 2021-06-05 07:12 | CON.PCM.CC_ITS ---
Assessment & Plan Assessment/Plan (1) Acute and chronic respiratory failure with hypercapnia: PLAN: RECOMMENDATIONS: 1. Maintain oxygen saturations 88 to 92%. 2. Continue Pap therapy with naps and nightly. 3. Discontinue antimicrobials. 4. Stop supplemental IV fluids. 5. Continue scheduled bronchodilators. 6. Transition from IV steroids to prednisone 40 mg daily. 7. At discharge, recommend prednisone 40 mg daily x5 days. 8. Case management to assist with orders for trilogy NIV. 9. Recommend referral to palliative care medicine. IMPRESSIONS: 1. Acute on chronic combined respiratory failure The patient has a baseline oxygen requirement of 3 L/min and chronic CO2 retention. In addition, she has known end-stage COPD identified on PFTs in 2016. I suspect that her current hospitalization is secondary to CO2 retention in the setting of questionable outpatient compliance and continued tobacco dependency. The patient should be maintained on her triple therapy inhaler regimen at discharge. Supplemental oxygen should be utilized as needed. I would strongly recommend that the patient be considered for noninvasive venti latory support in her home environment to prevent future exacerbations and hospitalizations. The patient requires volume ventilation and all other alternative therapies have been considered and ruled out due to the severity of the disease state and life-threatening condition, including CO2 retention. Due to the probability of acute exacerbation, the patient requires ventilation to be used during the day as needed, in addition to nightly usage with facemask. The patient should ideally follow-up in the pulmonary medicine clinic on an outpatient basis. Given the end-stage nature of her lung disease, palliative care referral would also be appropriate at this time. 2. Chronic tobacco dependency I personally spent 3 minutes discussing the deleterious effects of continued tobacco use with the patient, including modalities which could utilize to achieve a smoke-free lifestyle. Nicotine replacement therapy can be utilized while the patient is admitted to the hospital. 3. Malnutrition/pulmonary cachexia/hypertension Complicates care, management, recovery and prognosis. Continue home antihypertensive regimen. This note was generated with [employer] software. It may contain incorrect words, spelling, and punctuation that were not noted in checking the note before signing. HPI Consult Data Date of Consult: 06/05/21 HPI Narrative Reason for Consultation: Acute on chronic combined respiratory failure HPI Narrative: The patient is a 60-year-old female, with a history as outlined below, who presented to the emergency department on June 03 with altered mentation. The patient reported that for approximately 1 week prior to her presentation she just generally felt unwell. She stated that a home health aide had visited her home the day of her arrival to the ED and was concerned and therefore contacted EMS. The patient does have a profound smoking history of approximately 90 pack years and continues to smoke 0.25 packs of cigarettes per day. She has never been evaluated by a floorperson. She does utilize supplemental oxygen at 3 L/min at her baseline. The patient does appear to be prescribed Advair and Incruse on an outpatient basis. The patient had pulmonary function studies completed in January 2016 which revealed end-stage COPD with an FEV1 of 19% of predicted and significant bronchodilator response. She has chronic CO2 retention based upon her laboratory work-up noted on admission. On presentation to the emergency department, the patient was noted to be afebrile and hemodynamically stable. She was initially maintaining appropriate oxygen saturations on 3 L/min via nasal cannula. Laboratory evaluation revealed a normal white blood cell count. Platelet count was a bit low at 137,000. Arterial blood gas revealed a pH of 7.2 with a PCO2 of 166 and PO2 of 46. Chemistry profile revealed a chloride of 87 and bicarbonate greater than 45. Urinalysis was unremarkable. Toxicology screen was not obtained. CT head re vealed findings of chronic small vessel ischemic disease. Chest x-ray demonstrated hyperinflated lung agee. Rapid coronavirus antigen testing was negative. [facility] Medical History COPD (chronic obstructive pulmonary disease) H/O frozen left shoulder HTN (hypertension) Medical History unable to obtain Home Medications albuterol sulfate 2 puff INHALATION DAILY 06/03/21 [History Last Taken Unknown] fluticasone propion-salmeterol [Advair Diskus] 1 inh INHALATION BID 06/03/21 [History Last Taken Unknown] lisinopril 20 mg PO DAILY 06/03/21 [History Last Taken Unknown] umeclidinium [Incruse Ellipta] 1 inh INHALATION DAILY 06/03/21 [History Last Taken Unknown] Allergy/AdvReac Type Severity Reaction Status Date / Time No Known Allergies Allergy Verified 06/03/21 22:30 Surgical History unable to obtain Social History Smoking Status: Current every day smoker tobacco type: cigarettes ROS Constitutional Constitutional: Reports malaise and weakness Eyes Eyes: Denies blurry vision or change in vision ENT HEENT: Denies dizziness, headache(s) or hoarseness Cardiovascular Cardiovascular: Reports dyspnea Respiratory/Chest Respiratory/Chest: Reports cough and dyspnea Gastrointestinal Gastrointestinal: Denies abdominal pain, diarrhea, nausea or vomiting Genitourinary Genitourinary: Denies difficulty urinating Integumentary Integumentary: Denies lesions, rash or skin ulcer Neurologic Neurologic: Reports confusion Psychiatric Psychiatric: Denies anxiety or depression Endocrine Endocrinology: Reports fatigue Hematologic/Lymphatic Hematologic/Lymphatic: Denies easy bleeding or easy bruising Physical Exam Const alert, oriented x3 and no apparent distress General Appearance: cooperative, comfortable and frail Nutritional Appearance: cachectic HEENT normocephalic and head/scalp atraumatic Eyes PERRL, EOMs intact bilaterally and conjunctivae normal Neck supple General: trachea midline Chest Chest Narrative: Increased AP diameter. Resp no use of accessory muscles Effort and Inspection: able to speak in complete sentences Auscultation: diminished lung sounds bilateral Cardio regular rate and regular rhythm GI normal to inspection, nondistended, normoactive bowel sounds Extremity General Extremity: Negative for edema Skin no rashes or lesions noted Neuro CN's II-XII intact bilaterally and no focal motor deficits Psych cooperative and affect normal Medical Records Data Medical Nutrition Assessment Dietitian: Malnutrition Criteria Met Start: 06/04/21 15:54 Freq: Status: Active Protocol: Document 06/04/21 15:54 (Rec: 06/04/21 15:54 [id number]) Nutrition Malnutrition Evidence of Malnutrition Exists Yes Malnutrition (severe): Chronic Evidenced By Suboptimal Energy Intake ( Severe),Weight Loss (Severe) Clinical Problem Chronic Disease or Condition Related Malnutrition Etiology severe, chronic malnutrition r /t inadequate energy intake w/ increased energy needs d/t COPD Signs/Symptoms as evidenced by estimated PO intake meeting <75% of estimated nutritional needs >3 months; severe muscle wasting /fat loss upon physical exam; BMI 17.9 Status Active Problem Recommendation Dietitian Recommendations/Changes regular diet w/ fortified foods given malnutrition; continue ensure enlive 120mL 4x/day w/ medpass for additional calories/protein if consumed. Lab / Micro Data Result Diagrams: 06/04/21 05:10 06/04/21 05:10 Charges/Coding Visit Charges Inpatient E&M: 78326 Init Hosp L3 Behavior Interventions Behavior Intervention: 46326 Smoking Cessation 3-10 min
[2021-06-05] MEDS: Triamcinolone 0.5% Cream 1 APPLIC TOPICAL ×2 (10:23→22:04)
[2021-06-05] MEDS: guaiFENesin 1,200 MG Tablet 1200 MG PO ×2 (10:24→22:04)
[2021-06-05] MEDS: Enoxaparin 40 MG/0.4 ML Syringe SC (10:24)
[2021-06-05] MEDS: 0.9% Saline Lock 10 ML Syringe IV (13:10)
--- NOTE | 2021-06-05 13:33 | CPS ---
1310 CALLED TO GIVE PT AEROSOL RX. UPON ENTERING ROOM PT WAS SLEEPING. THIS THERAPIST SPOKE WITH PT'S NURSE, ILEANA AND INFORMED HIM TO CALL IF PT WAKES UP AND STILL WANTS AEROSOL RX.
--- NOTE | 2021-06-05 15:56 | CPS ---
PT PLACED BACK ON BIPAP FOR AFTERNOON NAP. NURSE AWARE
--- NOTE | 2021-06-05 17:30 | PCM.PN.HOSP ---
Subjective Subjective Patient was seen and examined today, she has not been compliant with wearing her BiPAP at night, patient does not understand why she is in poor health, I explained to her that she has significant severe COPD. I also explained to the patient that she will need to go to an extended care facility due to her need of BiPAP at night. Patient appears unaware that she has significant lung problems. Objective Data Objective Data Vital Signs: Vital Signs Temp Pulse Resp BP Pulse Ox 98.6 F 110 H 20 H 118/71 94 06/05/21 16:52 06/05/21 16:52 06/05/21 16:52 06/05/21 16:52 06/05/21 16:52 Oxygen Flow Rate (L/min) 4 Oxygen Delivery Method Nasal Cannula Weight: 47.2 kg Body Mass Index (BMI) 17.9 Intake & Output: Intake and Output for Last 24 Hours 06/03/21 06/04/21 06/05/21 23:59 23:59 23:59 Intake Total 3061.68 / 3061.68 1723.33 / 1723.33 Output Total 1550 / 1550 650 / 650 Balance 1511.68 / 1511.68 1073.33 / 1073.33 Medical Nutrition Assessment Dietitian: Malnutrition Criteria Met Start: 06/04/21 15:54 Freq: Status: Active Protocol: Document 06/04/21 15:54 AG (Rec: 06/04/21 15:54 [id number]) Nutrition Malnutrition Evidence of Malnutrition Exists Yes Malnutrition (severe): Chronic Evidenced By Suboptimal Energy Intake ( Severe),Weight Loss (Severe) Clinical Problem Chronic Disease or Condition Related Malnutrition Etiology severe, chronic malnutrition r /t inadequate energy intake w/ increased energy needs d/t COPD Signs/Symptoms as evidenced by estimated PO intake meeting <75% of estimated nutritional needs >3 months; severe muscle wasting /fat loss upon physical exam; BMI 17.9 Status Active Problem Recommendation Dietitian Recommendations/Changes regular diet w/ fortified foods given malnutrition; continue ensure enlive 120mL 4x/day w/ medpass for additional calories/protein if consumed. Lab / Micro Data Result Diagrams: 06/04/21 05:10 06/04/21 05:10 Micro: Microbiology 06/03/21 22:56 Urine Catheter - Catheter Urine Culture - Preliminary Culture exhibits no growth. 06/03/21 22:53 Interface Orders SARS-CoV-2 Antigen (Rapid) - Final Physical Exam Const alert, oriented x3 and no apparent distress Constitutional Narrative: Patient appears frail and much older than her age, she appears cachectic General Appearance: cooperative, well kempt and well developed Orientation / Consciousness: awake, oriented to person, oriented to place and oriented to time Nutritional Appearance: cachectic HEENT normocephalic, head/scalp atraumatic and moist oral mucous membranes Head and Scalp: normocephalic Eyes PERRL, EOMs intact bilaterally and conjunctivae normal Neck nuchal rigidity, supple, no JVD and thyroid normal General: trachea midline Resp normal respiratory effort, no retractions and no use of accessory muscles Resp Narrative: Breath sounds are distant bilaterally Auscultation: Negative for rales, rhonchi or wheezes Cardio regular rate, regular rhythm, S1 normal heart sound, S2 normal heart sound, no murmurs, no rub and no gallops GI normal to inspection, nondistended, normoactive bowel sounds, soft to palpation, non-tender and non-distended Extremity no clubbing, cyanosis or edema Skin no rashes or lesions noted General Skin Exam: no breakdown Neuro oriented x3, CN's II-XII intact bilaterally, no focal motor deficits and no sensory deficits noted Sensorium / Orientation: awake and alert Speech: speech normal Psych thought process normal and affect normal Assessment & Plan Assessment/Plan (1) Acute and chronic respiratory failure with hypercapnia: PLAN: 1. Acute on chronic combined respiratory failure-patient has severe end-stage COPD, pulmonary medicine recommended a possible palliative care consultation, I do not believe the patient would consent to this at this time, I asked her what she wanted if her heart stopped or if she stopped breathing, she told me she could not make up her mind whether go on the ventilator but she would want her heart restarted if her heart stopped. I do not believe the patient understands the severity of her COPD. #2 acute encephalopathy-probably metabolic in nature from hypercapnia #3 severe protein and caloric malnutrition-nutritional services are seeing patient #4 severe acute on chronic debility due to severe COPD and osteoarthritis-patient will need placement in a senior living facility again as she will need BiPAP at night and during the day when she sleeps. This cannot be set up at her home presently. #5 noncompliance with medical regimen probably secondary in part to metabolic encephalopathy. #6 acute anemia-etiology unclear, patient's hemoglobin dropped to 10.5 yesterday I will order iron studies on the patient and repeat her CBC today and tomorrow Charges/Coding Visit Charges Inpatient E&M: 67749 Subs Hosp L2
[2021-06-05 18:16] LABS: Absolute Lymphocyte Count 0.23 X10^3/uL (0.83-4.51); Absolute Neutrophil Count 5.5 X10^3/uL (2.0-7.7); Basophil# 0.01 X10^3/uL; Basophil% 0.2 % (0-1); Hematocrit 34.9 % (37-47); Hemoglobin 10.2 g/dL (12.0-15.0); Lymphocyte # 0.23 X10^3/ul (0.83-4.51); Lymphocyte % 3.8 % (19-41); Mean Corp Hgb Conc 29.2 g/dL (32-36); Mean Corpuscular Hgb 31.5 pg (27.0-32.0); Mean Corpuscular Volume 107.7 fL (81-99); Mean Platelet Vol. 9.6 fl (6.2-12.0); Monocyte# 0.24 X10^3/uL; NRBC Flagged by Analyzer 0 % (0-5); Neutrophil # 5.51 X10^3/uL (2.7-7.7); Neutrophil % 91.5 % (47-70); POSITIVE DIFFERENTIAL YES; Platelet Count 149 K/mm3 (150-450); RBC Distribution Width CV 13.1 % (11.6-14.6); RBC Distribution Width SD 51.8 fl (35.1-43.9); Red Blood Count 3.24 M/mm3 (4.2-5.4)
[2021-06-05 18:31] LABS: Differential Indicated SCAN CRITERIA MET
[2021-06-05 18:35] LABS: Iron 45 ug/dL (50-170); Iron Binding Capacity,Total 260 ug/dL (250-450); PERCENT IRON SATURATION 17.3 % (15.0-55.0)
[2021-06-05 18:41] LABS: Differential Comment SCANNED
[2021-06-05] MEDS: levoFLOXacin IV 500 MG/100 ML BAG 100 MG IV (22:05)
[2021-06-05] MEDS: MELATONIN 3 MG TABLET PO (23:10)
--- NOTE | 2021-06-05 23:46 | CPS ---
PT REFUSED BIPAP
[2021-06-06] VITALS (20 sets, daily range): BP systolic 105–137; BP diastolic 57–79; PULSE 75–112; RESP 16–24; TEMP 36.6–37.4; O2SAT 91–97
[2021-06-06] MEDS: 0.9% Normal Saline 1,000 ML 100 ML IV (01:11)
[2021-06-06 06:21] LABS: Allen Test Positive; Base Excess 22 mmol/L (-2 to +2); Bicarbonate 48.4 mmol/L (22-26); Blood Gas Specimen Type ART; O2 Delivery Device Cannula; PO2 87 mmHG (75-100); SITE L Radial; SO2 94 % (95-99); Total Carbon Dioxide > 50 mmol/L; pCO2 98.9 mmHg (35-45)
[2021-06-06 06:45] LABS: Allen Test Positive; Base Excess 19 mmol/L (-2 to +2); Bicarbonate 45.4 mmol/L (22-26); Blood Gas Specimen Type ART; FI02 45; O2 Delivery Device BiPAP; PO2 97 mmHG (75-100); SITE L Radial; SO2 96 % (95-99); Total Carbon Dioxide 48 mmol/L; pCO2 87.4 mmHg (35-45); pH 7.32 (7.35-7.45)
[2021-06-06 06:49] LABS: Absolute Lymphocyte Count 0.51 X10^3/uL (0.83-4.51); Absolute Neutrophil Count 4.6 X10^3/uL (2.0-7.7); Hematocrit 33.5 % (37-47); Hemoglobin 9.7 g/dL (12.0-15.0); Lymphocyte # 0.51 X10^3/ul (0.83-4.51); Lymphocyte % 8.9 % (19-41); Mean Corpuscular Hgb 31.5 pg (27.0-32.0); Mean Corpuscular Volume 108.8 fL (81-99); Mean Platelet Vol. 10.3 fl (6.2-12.0); Monocyte% 10.5 % (0-10); NRBC Flagged by Analyzer 0 % (0-5); Neutrophil # 4.59 X10^3/uL (2.7-7.7); Neutrophil % 80.1 % (47-70); POSITIVE DIFFERENTIAL YES; Platelet Count 142 K/mm3 (150-450); RBC Distribution Width CV 13.2 % (11.6-14.6); RBC Distribution Width SD 53.4 fl (35.1-43.9); Red Blood Count 3.08 M/mm3 (4.2-5.4); White Blood Count 5.7 K/mm3 (4.4-11.0)
--- NOTE | 2021-06-06 06:50 | CPS ---
Critical values verified times two. Reported to PCU charge nurse. Sent to
[2021-06-06] MEDS: Ipratropium/Albuterol Sulfate 3 ML AMPUL.NEB INHALATION ×5 (07:06→22:44)
[2021-06-06 07:15] LABS: Differential Indicated SCAN CRITERIA MET
[2021-06-06] MEDS: Furosemide 40 MG/4 ML Vial IV (08:22)
[2021-06-06] MEDS: Triamcinolone 0.5% Cream 1 APPLIC TOPICAL ×2 (10:20→21:45)
[2021-06-06] MEDS: Enoxaparin 40 MG/0.4 ML Syringe SC (10:20)
[2021-06-06] MEDS: guaiFENesin 1,200 MG Tablet 1200 MG PO ×2 (10:20→21:48)
--- NOTE | 2021-06-06 10:48 | CPS ---
pt was placed back on Bipap post aerosol rx
--- NOTE | 2021-06-06 12:25 | PCM.PN.HOSP ---
Documented by User: Cortes TRAN 06/06/21 12:41 Subjective Subjective Patient is a 60-year-old female resting in a chair, alert and oriented x3. Although patient is alert and oriented it is difficult to assess how much of patient's condition she is actually comprehending. Does not appear to be in acute distress but this is difficult to assess as patient's affect is flat. Objective Data Objective Data Vital Signs: Vital Signs Temp Pulse Resp BP Pulse Ox 98.4 F 95 18 111/76 96 06/06/21 11:28 06/06/21 11:28 06/06/21 11:28 06/06/21 11:28 06/06/21 11:28 Oxygen Flow Rate (L/min) 4 Oxygen Delivery Method Bi-pap Weight: 104 lb 0.931 oz Body Mass Index (BMI) 17.9 Intake & Output: Intake and Output for Last 24 Hours 06/04/21 06/05/21 06/06/21 23:59 23:59 23:59 Intake Total 3061.68 / 3061.68 2203.33 / 2203.33 1000 / 1000 Output Total 1550 / 1550 1350 / 1350 400 / 400 Balance 1511.68 / 1511.68 853.33 / 853.33 600 / 600 Medical Nutrition Assessment Dietitian: Malnutrition Criteria Met Start: 06/04/21 15:54 Freq: Status: Active Protocol: Document 06/04/21 15:54 AG (Rec: 06/04/21 15:54 [id number]) Nutrition Malnutrition Evidence of Malnutrition Exists Yes Malnutrition (severe): Chronic Evidenced By Suboptimal Energy Intake ( Severe),Weight Loss (Severe) Clinical Problem Chronic Disease or Condition Related Malnutrition Etiology severe, chronic malnutrition r /t inadequate energy intake w/ increased energy needs d/t COPD Signs/Symptoms as evidenced by estimated PO intake meeting <75% of estimated nutritional needs >3 months; severe muscle wasting /fat loss upon physical exam; BMI 17.9 Status Active Problem Recommendation Dietitian Recommendations/Changes regular diet w/ fortified foods given malnutrition; continue ensure enlive 120mL 4x/day w/ medpass for additional calories/protein if consumed. Lab / Micro Data Result Diagrams: 06/06/21 05:55 06/04/21 05:10 Labs: Laboratory Results - last 24 hr 06/05/21 18:01: WBC 6.0, RBC 3.24 L, Hgb 10.2 L, Hct 34.9 L, MCV 107.7 H, MCH 31.5, MCHC 29.2 L, RDW Std Deviation 51.8 H, RDW Coeff of Rachell 13.1, Plt Count 149 L, MPV 9.6, Immature Gran % (Auto) 0.500, Neut % (Auto) 91.5 H, Lymph % (Auto) 3.8 L, [place] % (Auto) 4.0, Eos % (Auto) 0.0, Baso % (Auto) 0.2, Absolute Neuts (auto) 5.5, Absolute Lymphs (auto) 0.23 L, Nucleated RBC % 0, Differential Comment SCANNED 06/05/21 18:01: Iron 45 L, TIBC 260, Iron Saturation 17.3 06/06/21 05:55: WBC 5.7, RBC 3.08 L, Hgb 9.7 L, Hct 33.5 L, MCV 108.8 H, MCH 31.5, MCHC 29.0 L, RDW Std Deviation 53.4 H, RDW Coeff of Rachell 13.2, Plt Count 142 L, MPV 10.3, Immature Gran % (Auto) 0.500, Neut % (Auto) 80.1 H, Lymph % (Auto) 8.9 L, [place] % (Auto) 10.5 H, Eos % (Auto) 0.0, Baso % (Auto) 0.0, Absolute Neuts (auto) 4.6, Absolute Lymphs (auto) 0.51 L, Nucleated RBC % 0 Micro: Microbiology 06/03/21 22:56 Urine Catheter - Catheter Urine Culture - Preliminary Mixed Gram Positive Organisms 06/03/21 22:53 Interface Orders SARS-CoV-2 Antigen (Rapid) - Final ABG Data ABG results: ABG 06/06/21 06/06/21 04:17 06:41 Specimen Type ART ART Sample Site L Radial L Radial pH 7.30 L 7.32 L Bicarbonate Actual 48.4 H 45.4 H Total CO2 > 50 48 Base Excess 22 H 19 H O2 Saturation 94 L 96 O2 % 45 ABG pCO2 98.9 H* 87.4 H* ABG pO2 87 97 Phong Test Positive Positive O2 Delivery Device Cannula BiPAP Liter Flow 4.0 Crit Call To/Read Back Yes Yes Blood Gas Notified Whom Dr. Perez Physical Exam Const alert, oriented x3 and no apparent distress Nutritional Appearance: underweight HEENT head/scalp atraumatic and moist oral mucous membranes Head and Scalp: normocephalic Eyes PERRL, EOMs intact bilaterally and conjunctivae normal Neck no lymphadenopathy, supple and no JVD Resp no retractions and no use of accessory muscles Resp Narrative: Currently satting 96 percent on 4 L via nasal cannula. Patient has been transitioning between nasal cannula and BiPAP. Auscultation: diminished lung sounds Cardio regular rate, regular rhythm, no murmurs and no JVD GI normal to inspection, nondistended, normoactive bowel sounds, soft to palpation, non-tender and non-distended Extremity normal to inspection, full ROM and no clubbing, cyanosis or edema Peripheral Pulses: Yes pulses 2+ throughout Skin no rashes or lesions noted, no wounds, skin turgor normal and no jaundice Neuro CN's II-XII intact bilaterally Psych affect normal Assessment & Plan Assessment/Plan (1) Acute and chronic respiratory failure with hypercapnia: (2) Acute hypercapnic respiratory failure: (3) Encephalopathy acute: (4) COPD with acute exacerbation: PLAN: Day 2 Discharge planning: To be determined, possible SNF. 1) Acute on chronic combined respiratory failure Patient has severe end-stage COPD. Currently satting 96% on 4 L via nasal cannula, patient transitioning between nasal cannula and BiPAP. Pulmonary consulted and please patient should receive a palliative care referral. Try to initiate this conversation with patient, although it is unclear how much she is comprehending. Patient denies wanting to go to SNF. We will maintain oxygen 2) acute metabolic encephalopathy Likely due to hypercapnia on admission. Patient is alert and oriented however it is unclear how much she comprehends. 3) severe protein and calorie malnutrition Dietitian consult ordered. 4) macrocytic anemia Hemoglobin currently 9.7, baseline is unclear as patient does not have a trend. We will continue to trend CBC. Will transfuse if hemoglobin falls below 7. Iron studies ordered. DVT prophylaxis - Lovenox Patient seen by Cortes Nunes PA-C, under the supervision of Dr. Richards. Documented by User: Dr. Tracey Richards MD 06/06/21 15:51 Objective Data Lab / Micro Data Result Diagrams: 06/06/21 05:55 06/04/21 05:10 Charges/Coding Addendum Addendum: Patient seen by Cortes Nunes PA-C under my supervision. Patient seen and examined. Patient was eating breakfast. She had a very flat affect. She had no active complaints and denied any shortness of breath. She denied any chest pain, palpitations, dizziness, nausea or vomiting. Review of systems otherwise negative. O/E: Const alert, oriented x3 and no apparent distress Nutritional Appearance: underweight HEENT head/scalp atraumatic and moist oral mucous membranes Head and Scalp: normocephalic Eyes PERRL, EOMs intact bilaterally and conjunctivae normal Neck no lymphadenopathy, supple and no JVD Resp no retractions and no use of accessory muscles Resp Narrative: on 4L of oxygen, which is her baseline Auscultation: diminished lung sounds Cardio regular rate, regular rhythm, no murmurs and no JVD GI normal to inspection, nondistended, normoactive bowel sounds, soft to palpation, non-tender and non-distended Extremity normal to inspection, full ROM and no clubbing, cyanosis or edema Peripheral Pulses: Yes pulses 2+ throughout Skin no rashes or lesions noted, no wounds, skin turgor normal and no jaundice Neuro CN's II-XII intact bilaterally Psych affect flat Patient is being managed for acute on chronic hypoxic hypercapnic respiratory failure due to COPD exacerbation. She alternates between BiPAP and nasal cannula. She is on 4 L of oxygen by nasal cannula right now. Titrate oxygen to maintain saturation above 90%. Breathing treatments with bronchodilators. Pulmonology on board. Palliative care consult placed. Dietitian on board on account of severe protein calorie malnutrition which is due to decreased intake. On Lovenox for DVT prophylaxis. Patient currently awaiting placement.\ Rest as per Cortes Nunes PA-C's note which I reviewed and endorsed. Visit Charges Inpatient E&M: 07280 Subs Hosp L2
--- NOTE | 2021-06-06 13:05 | CASEMGMT ---
Addendum entered by Tanya Chris 06/06/21 14:46: Pt's son is here, he states wants a referral sent to [facility]. He was concerned about if there are any COVID patients at [facility], SW explained will make referral and find out. SW called [facility], spoke w/Gisele. They do not have any COVID pts at present. SW faxed the referral, she will call SW back once she knows if they can take pt. SW spoke w/pt's son outside of the room, let him know that there are no cases of COVID at [facility] at present. SW explained this to son and will let him know if [facility] can take pt. Son also asked about completing POA papers, states they are completed, both for financial and medical, all but signed. SW explained pt may not be able to complete these at present due to her mental state, perhaps when she gets to a long-term the long-term can assist. SW asked about other family. Pt is , and pt has one other son who is in retirement and is a drug addict as per Charli, and pt has said does not want the son who is in retirement involved. SW spoke w/son at length about the difficulty of caring for a parent who is having a health decline and memory issues. Support given. SW will continue to follow. LESA Isidro Addendum entered by Tanya Chris 06/06/21 13:32: SW called [facility] as it appears pt has Passport services. MARCUS let the covering casework manager know pt is here, was admitted on the . Pt has aide services for 3 hours per day, Sunday through Sunday, with [facility]. She states pt's casework manager is Allyn Batista([phone]). MARCUS left Allyn a message letting her know pt is here in the hospital. LESA Isidro Original Note: MARCUS called son to review discharge plan. We reviewed the options of going home vs going to a alf facility. Son asked the physician's opinion, SW spoke with the PA and he does think pt would benefit from long-term placement at this time. After reviewing how pt is moving with therapy, and the possible need for bipap at night(and doesn't have one and would not have one ordered by the time she leaves the hospital), and pt's cognition at present, son in agreement with SNF. SW reviewed with the son local nursing homes that take pt's insurance. He may want a referral set to [facility], but wants to speak w/family and let SW know where to send the referral. He will be back in the hospital later and will ask to speak with the SW then. SW will speak w/son this afternoon. LESA Isidro
[2021-06-06 13:12] LABS: Iron 50 ug/dL (50-170); Iron Binding Capacity,Total 217 ug/dL (250-450)
[2021-06-06] MEDS: 0.9% Saline Lock 10 ML Syringe IV ×2 (13:44→21:45)
--- NOTE | 2021-06-06 14:54 | NURSING ---
This RN reviewed all SN charting
[2021-06-06] MEDS: levoFLOXacin IV 500 MG/100 ML BAG 100 MG IV (21:45)
--- NOTE | 2021-06-06 23:53 | CPS ---
Patient changed to AVAPS BiPAP mode because of decreased tidal volumes while asleep. Volumes noted to be mid 200s with good seal on 21/03 RR 16. Tidal volumes improved after change made.
[2021-06-07] VITALS (18 sets, daily range): BP systolic 72–139; BP diastolic 45–83; PULSE 73–122; RESP 16–24; TEMP 36.5–36.9; O2SAT 90–98
[2021-06-07] MEDS: Acetaminophen 325 MG Tablet 650 MG PO (01:10)
[2021-06-07] MEDS: 0.9% Saline Lock 10 ML Syringe IV ×3 (05:17→22:06)
[2021-06-07 05:38] LABS: Absolute Lymphocyte Count 0.49 X10^3/uL (0.83-4.51); Absolute Neutrophil Count 3.8 X10^3/uL (2.0-7.7); Hemoglobin 9.7 g/dL (12.0-15.0); Lymphocyte # 0.49 X10^3/ul (0.83-4.51); Lymphocyte % 10.4 % (19-41); Mean Corp Hgb Conc 29.4 g/dL (32-36); Mean Corpuscular Hgb 31.4 pg (27.0-32.0); Mean Corpuscular Volume 106.8 fL (81-99); Mean Platelet Vol. 9.8 fl (6.2-12.0); Monocyte# 0.43 X10^3/uL; Monocyte% 9.1 % (0-10); NRBC Flagged by Analyzer 0 % (0-5); Neutrophil # 3.79 X10^3/uL (2.7-7.7); Neutrophil % 80.1 % (47-70); POSITIVE DIFFERENTIAL YES; Platelet Count 145 K/mm3 (150-450); RBC Distribution Width CV 13.2 % (11.6-14.6); RBC Distribution Width SD 51.8 fl (35.1-43.9); Red Blood Count 3.09 M/mm3 (4.2-5.4); White Blood Count 4.7 K/mm3 (4.4-11.0)
[2021-06-07 06:09] LABS: Differential Indicated SCAN CRITERIA MET
[2021-06-07 06:29] LABS: BUN 16 mg/dL (7-18); BUN/Creat Ratio 56.1 RATIO (10-20); Calcium,Total 8.4 mg/dL (8.5-10.1); Carbon Dioxide > 45.0 mmol/L (21.0-32.0); Chloride 93 mmol/L (98-107); Creatinine, Serum 0.28 mg/dL (0.55-1.02); EST Glomerular Filtration Rate 254 mL/min (>60); Est Glom Filt Rate - Afr Amer 307 mL/min (>60); Estimated Creatinine Clearance 155.23 ml/min; Glucose 110 mg/dL (74-106); Potassium 3.9 mmol/L (3.5-5.1); Sodium Level 140 mmol/L (136-145)
[2021-06-07] MEDS: Ipratropium/Albuterol Sulfate 3 ML AMPUL.NEB INHALATION ×4 (06:44→18:38)
[2021-06-07 06:48] LABS: Differential Comment SCANNED
--- NOTE | 2021-06-07 09:23 | CASEMGMT ---
MARCUS returned phone call from Gisele at [facility]. They can accept patient and Gisele started the pre-cert yesterday. Plan: d/c to [facility] pending pre-cert. Bernadette ELY
[2021-06-07] MEDS: guaiFENesin 1,200 MG Tablet 1200 MG PO ×2 (09:28→22:06)
[2021-06-07] MEDS: Enoxaparin 40 MG/0.4 ML Syringe SC (09:28)
[2021-06-07] MEDS: Triamcinolone 0.5% Cream 1 APPLIC TOPICAL ×2 (09:29→22:07)
--- NOTE | 2021-06-07 13:27 | PN.HOSP_ITS ---
Documented by User: Cortes TRAN 06/07/21 13:34 Subjective Subjective Patient is a 60-year-old female comfortably resting in bed, alert and orient x3. Patient mentation does seem to have improved from yesterday as patient is more conversive and is able to voice understanding about her current condition and disposition. Denies development of any new symptoms overnight. Does not appear to be in acute distress. Objective Data Objective Data Vital Signs: Vital Signs Temp Pulse Resp BP Pulse Ox 98.3 F 103 H 20 H 112/56 L 96 06/07/21 05:16 06/07/21 11:00 06/07/21 11:00 06/07/21 05:16 06/07/21 11:00 Oxygen Flow Rate (L/min) 4 Oxygen Delivery Method Nasal Cannula Weight: 104 lb 0.931 oz Body Mass Index (BMI) 17.9 Intake & Output: Intake and Output for Last 24 Hours 06/05/21 06/06/21 06/07/21 23:59 23:59 23:59 Intake Total 2203.33 / 2203.33 2260 / 2500 440 / 440 Output Total 1350 / 1350 1650 / 1825 425 / 425 Balance 853.33 / 853.33 610 / 675 Medical Nutrition Assessment Dietitian: Malnutrition Criteria Met Start: 06/04/21 15:54 Freq: Status: Active Protocol: Document 06/04/21 15:54 AG (Rec: 06/04/21 15:54 AG [id number]) Nutrition Malnutrition Evidence of Malnutrition Exists Yes Malnutrition (severe): Chronic Evidenced By Suboptimal Energy Intake ( Severe),Weight Loss (Severe) Clinical Problem Chronic Disease or Condition Related Malnutrition Etiology severe, chronic malnutrition r /t inadequate energy intake w/ increased energy needs d/t COPD Signs/Symptoms as evidenced by estimated PO intake meeting <75% of estimated nutritional needs >3 months; severe muscle wasting /fat loss upon physical exam; BMI 17.9 Status Active Problem Recommendation Dietitian Recommendations/Changes regular diet w/ fortified foods given malnutrition; continue ensure enlive 120mL 4x/day w/ medpass for additional calories/protein if consumed. Lab / Micro Data Result Diagrams: 06/07/21 05:32 06/07/21 05:32 Labs: Laboratory Results - last 24 hr 06/07/21 05:32: WBC 4.7, RBC 3.09 L, Hgb 9.7 L, Hct 33.0 L, MCV 106.8 H, MCH 31.4, MCHC 29.4 L, RDW Std Deviation 51.8 H, RDW Coeff of Rachell 13.2, Plt Count 145 L, MPV 9.8, Immature Gran % (Auto) 0.400, Neut % (Auto) 80.1 H, Lymph % (Auto) 10.4 L, [place] % (Auto) 9.1, Eos % (Auto) 0.0, Baso % (Auto) 0.0, Absolute Neuts (auto) 3.8, Absolute Lymphs (auto) 0.49 L, Nucleated RBC % 0, Differential Comment SCANNED 06/07/21 05:32: Sodium 140, Potassium 3.9, Chloride 93 L, Carbon Dioxide > 45.0 H*, Anion Gap TNP, BUN 16, Creatinine 0.28 L, Estim Creat Clear Calc 155.23, Est GFR (MDRD) Af Amer 307, Est GFR (MDRD) Non-Af 254, BUN/Creatinine Ratio 56.1 H, Glucose 110 H, Calcium 8.4 L Micro: Microbiology 06/03/21 22:56 Urine Catheter - Catheter Urine Culture - Final Mixed Gram Positive Organisms 06/03/21 22:40 Blood Culture (Wb) - Anticubital Right Blood Culture - Preliminary No growth in 48 hours. 06/03/21 22:45 Blood Culture (Wb) - Left Hand Blood Culture - Preliminary No growth in 48 hours. 06/03/21 22:53 Interface Orders SARS-CoV-2 Antigen (Rapid) - Final Physical Exam Const alert, oriented x3 and no apparent distress HEENT head/scalp atraumatic and moist oral mucous membranes Head and Scalp: normocephalic Eyes PERRL, EOMs intact bilaterally and conjunctivae normal Neck no lymphadenopathy, supple and no JVD Resp normal respiratory effort, no retractions and no use of accessory muscles Auscultation: diminished lung sounds Cardio regular rate, regular rhythm, no murmurs and no JVD GI normal to inspection, nondistended, normoactive bowel sounds, soft to palpation, non-tender and non-distended Extremity normal to inspection, full ROM and no clubbing, cyanosis or edema Peripheral Pulses: Yes pulses 2+ throughout Skin no rashes or lesions noted, no wounds, skin turgor normal and no jaundice Neuro CN's II-XII intact bilaterally Psych affect normal Assessment & Plan Assessment/Plan (1) Debility: (2) COPD with acute exacerbation: (3) Encephalopathy acute: (4) Acute hypercapnic respiratory failure: (5) Acute and chronic respiratory failure with hypercapnia: PLAN: Day 3 Discharge planning: Patient to DC to [facility] on SNF pending pre-CERT. 1) Acute on chronic combined respiratory failure Patient has severe end-stage COPD. Currently satting 96% on 4 L via nasal cannula, patient transitioning between nasal cannula and BiPAP. Continue Levaquin, Solu-Medrol and breathing treatments, maintain oxygen saturations between 88 and 92%. 2) acute metabolic encephalopathy Likely due to hypercapnia on admission. Patient mentation has seemed to improve from yesterday as she is able to voice understanding about her current condition and disposition. 3) severe protein and calorie malnutrition Dietitian consult ordered. 4) macrocytic anemia Hemoglobin currently 9.7, baseline is unclear as patient does not have a trend. We will continue to trend CBC. Will transfuse if hemoglobin falls below 7. Iron studies ordered. DVT prophylaxis - Lovenox Patient seen by Cortes Nunes PA-C, under the supervision of Dr. Richards. Documented by User: Dr. Tracey Richards MD 06/07/21 15:30 Objective Data Lab / Micro Data Result Diagrams: 06/07/21 05:32 06/07/21 05:32 Charges/Coding Addendum Addendum: Patient seen by Cortes Nunes PA-C under my supervision Patient seen and examined. She has no complaints. She still has a very flat affect. Review of systems is otherwise negative. She has remained stable otherwise and is awaiting placement. O/E: Const alert, oriented x3 and no apparent distress Nutritional Appearance: underweight HEENT head/scalp atraumatic and moist oral mucous membranes Head and Scalp: normocephalic Eyes PERRL, EOMs intact bilaterally and conjunctivae normal Neck no lymphadenopathy, supple and no JVD Resp no retractions and no use of accessory muscles Resp Narrative: on 4L of oxygen, which is her baseline Auscultation: diminished lung sounds Cardio regular rate, regular rhythm, no murmurs and no JVD GI normal to inspection, nondistended, normoactive bowel sounds, soft to palpation, non-tender and non-distended Extremity normal to inspection, full ROM and no clubbing, cyanosis or edema Peripheral Pulses: Yes pulses 2+ throughout Skin no rashes or lesions noted, no wounds, skin turgor normal and no jaundice Neuro CN's II-XII intact bilaterally Psych affect flat Patient remains on 4L of oxygen by nasal canula. She continues to alternate between oxygen by nasal canula and BIPAP. Continue bronchodilators. Pulmonology also on board. On lovenox for DVT prophylaxis. Nutrition on board due to severe protein calorie malnutrition. Rest as per Cortes Nunes PA-C's note, which I have reviewed and endorsed. Visit Charges Inpatient E&M: 63467 Subs Hosp L2
--- NOTE | 2021-06-07 13:37 | CASEMGMT ---
MARCUS called patient's son Charli and let him know patient was accepted at [facility]. MARCUS let Charli know that patient will stay in the hospital until insurance gives the okay. SW will let him know when SW hears something. Plan: d/c to [facility] pending insurance authorization. Bernadette ELY
--- NOTE | 2021-06-07 13:48 | CASEMGMT ---
MARCUS faxed bipap settings to [facility]. MARCUS also called Gisele at [facility] and left her a voice mail letting her know SW will need bipap at night and with naps and that SW faxed the settings. Bernadette Blanchard LITIGATION DOCKET MANAGER JHOANA
[2021-06-07] MEDS: levoFLOXacin IV 500 MG/100 ML BAG 100 MG IV (22:06)
[2021-06-08] VITALS (17 sets, daily range): BP systolic 113–142; BP diastolic 66–80; PULSE 89–128; RESP 16–24; TEMP 36.7–37.1; O2SAT 89–96
[2021-06-08] MEDS: 0.9% Saline Lock 10 ML Syringe IV ×3 (05:13→21:21)
[2021-06-08] MEDS: Ipratropium/Albuterol Sulfate 3 ML AMPUL.NEB INHALATION ×4 (06:57→23:21)
[2021-06-08] MEDS: Enoxaparin 40 MG/0.4 ML Syringe SC (08:21)
[2021-06-08] MEDS: guaiFENesin 1,200 MG Tablet 1200 MG PO ×2 (08:22→21:22)
[2021-06-08] MEDS: Triamcinolone 0.5% Cream 1 APPLIC TOPICAL ×2 (08:22→22:00)
[2021-06-08] MEDS: Acetaminophen 325 MG Tablet 650 MG PO ×2 (08:22→21:23)
[2021-06-08] MEDS: Lisinopril 20 MG Tablet PO (08:22)
[2021-06-08 08:33] LABS: BUN 14 mg/dL (7-18); BUN/Creat Ratio 48.3 RATIO (10-20); Calcium,Total 8.6 mg/dL (8.5-10.1); Carbon Dioxide > 45.0 mmol/L (21.0-32.0); Chloride 94 mmol/L (98-107); Creatinine, Serum 0.29 mg/dL (0.55-1.02); EST Glomerular Filtration Rate 248 mL/min (>60); Est Glom Filt Rate - Afr Amer 301 mL/min (>60); Estimated Creatinine Clearance 149.87 ml/min; Glucose 102 mg/dL (74-106); Potassium 3.9 mmol/L (3.5-5.1); Sodium Level 139 mmol/L (136-145)
--- NOTE | 2021-06-08 14:10 | CASEMGMT ---
MARCUS called Gisele at [facility] and she has not heard from insurance yet. Bernadette Blanchard CLINICAL SPECIALIST VASCULAR [employer]YSTER WORKER
--- NOTE | 2021-06-08 15:19 | PN.HOSP_ITS ---
Documented by User: Cortes TRAN 06/08/21 15:23 Subjective Subjective Patient is a 60-year-old female comfortably resting in a chair, alert and orient x3. Patient reports improvement in her shortness of breath for admission. Denies development of any new symptoms overnight. Does not appear to be in [place] distress. Objective Data Objective Data Vital Signs: Vital Signs Temp Pulse Resp BP Pulse Ox 98.6 F 98 20 H 118/72 94 06/08/21 14:11 06/08/21 14:11 06/08/21 14:11 06/08/21 14:11 06/08/21 14:11 Oxygen Flow Rate (L/min) 4 Oxygen Delivery Method Nasal Cannula Weight: 104 lb 0.931 oz Body Mass Index (BMI) 17.9 Intake & Output: Intake and Output for Last 24 Hours 06/06/21 06/07/21 06/08/21 23:59 23:59 23:59 Intake Total 2260 / 2500 1620 / 1620 620 / 620 Output Total 1650 / 1825 675 / 675 550 / 550 Balance 610 / 675 945 / 945 70 / 70 Medical Nutrition Assessment Dietitian: Malnutrition Criteria Met Start: 06/04/21 15:54 Freq: Status: Active Protocol: Document 06/04/21 15:54 AG (Rec: 06/04/21 15:54 AG [id number]) Nutrition Malnutrition Evidence of Malnutrition Exists Yes Malnutrition (severe): Chronic Evidenced By Suboptimal Energy Intake ( Severe),Weight Loss (Severe) Clinical Problem Chronic Disease or Condition Related Malnutrition Etiology severe, chronic malnutrition r /t inadequate energy intake w/ increased energy needs d/t COPD Signs/Symptoms as evidenced by estimated PO intake meeting <75% of estimated nutritional needs >3 months; severe muscle wasting /fat loss upon physical exam; BMI 17.9 Status Active Problem Recommendation Dietitian Recommendations/Changes regular diet w/ fortified foods given malnutrition; continue ensure enlive 120mL 4x/day w/ medpass for additional calories/protein if consumed. Lab / Micro Data Result Diagrams: 06/07/21 05:32 06/08/21 06:15 Labs: Laboratory Results - last 24 hr 06/08/21 06:15: Sodium 139, Potassium 3.9, Chloride 94 L, Carbon Dioxide > 45.0 H*, Anion Gap TNP, BUN 14, Creatinine 0.29 L, Estim Creat Clear Calc 149.87, Est GFR (MDRD) Af Amer 301, Est GFR (MDRD) Non-Af 248, BUN/Creatinine Ratio 48.3 H, Glucose 102, Calcium 8.6 Micro: Microbiology 06/03/21 22:56 Urine Catheter - Catheter Urine Culture - Final Mixed Gram Positive Organisms 06/03/21 22:40 Blood Culture (Wb) - Anticubital Right Blood Culture - Preliminary No growth in 48 hours. 06/03/21 22:45 Blood Culture (Wb) - Left Hand Blood Culture - Preliminary No growth in 48 hours. 06/03/21 22:53 Interface Orders SARS-CoV-2 Antigen (Rapid) - Final Physical Exam Const alert, oriented x3 and no apparent distress HEENT head/scalp atraumatic, moist oral mucous membranes and oropharynx normal Head and Scalp: normocephalic Eyes PERRL, EOMs intact bilaterally and conjunctivae normal Neck no lymphadenopathy, supple and no JVD Resp normal respiratory effort, no retractions, no use of accessory muscles and clear to auscultation bilaterally Cardio regular rate, regular rhythm, no murmurs and no JVD GI normal to inspection, nondistended, normoactive bowel sounds, soft to palpation and non-tender Extremity normal to inspection, full ROM and no clubbing, cyanosis or edema Peripheral Pulses: Yes pulses 2+ throughout Skin no rashes or lesions noted, no wounds, skin turgor normal and no jaundice Neuro CN's II-XII intact bilaterally Psych affect normal Assessment & Plan Assessment/Plan (1) Acute and chronic respiratory failure with hypercapnia: (2) Acute hypercapnic respiratory failure: (3) Encephalopathy acute: (4) COPD with acute exacerbation: (5) Debility: PLAN: Day 4 Discharge planning: Patient to DC to [place] on SNF pending pre-CERT. 1) Acute on chronic combined respiratory failure Patient has severe end-stage COPD. Currently satting 92% on 4 L via nasal cannula, patient transitioning between nasal cannula and BiPAP. Continue Levaquin (day 4/5), Solu-Medrol and breathing treatments, maintain oxygen saturations between 88 and 92%. 2) acute metabolic encephalopathy Likely due to hypercapnia on admission. Patient mentation has seemed to improve from yesterday as she is able to voice understanding about her current condition and disposition. 3) severe protein and calorie malnutrition Dietitian consult ordered. 4) macrocytic anemia Hemoglobin currently 9.7, baseline is unclear as patient does not have a trend. We will continue to trend CBC. Will transfuse if hemoglobin falls below 7. Iron studies ordered. DVT prophylaxis - Lovenox Patient seen by Cortes Nunes PA-C, under the supervision of Dr. Richards. Documented by User: Dr. Tracey Richards MD 06/08/21 16:07 Objective Data Lab / Micro Data Result Diagrams: 06/07/21 05:32 06/08/21 06:15 Charges/Coding Addendum Addendum: Patient seen by Cortes Nunes PA-C under my supervision Patient seen and examined. She has no complaints. SHe was on her BIPAP at time of review and said she was sleepy. Review of systems otherwise negative. She is awaiting placement. O/E: Const alert, oriented x3 and no apparent distress Nutritional Appearance: underweight HEENT head/scalp atraumatic and moist oral mucous membranes Head and Scalp: normocephalic Eyes PERRL, EOMs intact bilaterally and conjunctivae normal Neck no lymphadenopathy, supple and no JVD Resp no retractions and no use of accessory muscles Resp Narrative: on BIPAP Auscultation: diminished lung sounds Cardio regular rate, regular rhythm, no murmurs and no JVD GI normal to inspection, nondistended, normoactive bowel sounds, soft to palpation, non-tender and non-distended Extremity normal to inspection, full ROM and no clubbing, cyanosis or edema Peripheral Pulses: Yes pulses 2+ throughout Skin no rashes or lesions noted, no wounds, skin turgor normal and no jaundice Neuro CN's II-XII intact bilaterally Psych affect flat Patient remains on BIPAP; she alternates between BIPAP and oxygen by nasal canula. Continue bronchodilators. Pulmonology also on board. On lovenox for DVT prophylaxis. Nutrition on board due to severe protein calorie malnutrition. Awaiting placement. Rest as per Cortes Nunes PA-C's note, which I have reviewed and endorsed. Visit Charges Inpatient E&M: 84222 Subs Hosp L2
[2021-06-08] MEDS: levoFLOXacin IV 500 MG/100 ML BAG 100 MG IV (21:21)
[2021-06-09] VITALS (10 sets, daily range): BP systolic 98–145; BP diastolic 54–73; PULSE 87–106; RESP 16–20; TEMP 36.8–37.2; O2SAT 93–98
[2021-06-09] MEDS: Ipratropium/Albuterol Sulfate 3 ML AMPUL.NEB INHALATION ×3 (03:06→14:25)
[2021-06-09] MEDS: 0.9% Saline Lock 10 ML Syringe IV (05:47)
[2021-06-09 05:56] LABS: Absolute Lymphocyte Count 0.31 X10^3/uL (0.83-4.51); Absolute Neutrophil Count 4.3 X10^3/uL (2.0-7.7); Hematocrit 33.5 % (37-47); Hemoglobin 10.1 g/dL (12.0-15.0); Lymphocyte # 0.31 X10^3/ul (0.83-4.51); Lymphocyte % 6.1 % (19-41); Mean Corp Hgb Conc 30.1 g/dL (32-36); Mean Corpuscular Hgb 31.9 pg (27.0-32.0); Mean Corpuscular Volume 105.7 fL (81-99); Mean Platelet Vol. 9.7 fl (6.2-12.0); Monocyte% 9.8 % (0-10); NRBC Flagged by Analyzer 0 % (0-5); Neutrophil # 4.26 X10^3/uL (2.7-7.7); Neutrophil % 83.7 % (47-70); POSITIVE DIFFERENTIAL YES; Platelet Count 180 K/mm3 (150-450); RBC Distribution Width CV 13.2 % (11.6-14.6); RBC Distribution Width SD 51.4 fl (35.1-43.9); Red Blood Count 3.17 M/mm3 (4.2-5.4); White Blood Count 5.1 K/mm3 (4.4-11.0)
[2021-06-09 06:34] LABS: Differential Indicated SCAN CRITERIA MET
[2021-06-09 06:56] LABS: Anion Gap 1 (5-15); BUN 15 mg/dL (7-18); BUN/Creat Ratio 43.1 RATIO (10-20); Calcium,Total 8.4 mg/dL (8.5-10.1); Chloride 94 mmol/L (98-107); Creatinine, Serum 0.35 mg/dL (0.55-1.02); EST Glomerular Filtration Rate 201 mL/min (>60); Est Glom Filt Rate - Afr Amer 244 mL/min (>60); Estimated Creatinine Clearance 124.18 ml/min; Glucose 230 mg/dL (74-106); Potassium 3.9 mmol/L (3.5-5.1); Sodium Level 139 mmol/L (136-145)
[2021-06-09 07:05] LABS: Differential Comment SCANNED
[2021-06-09] MEDS: Albuterol 2.5 MG/3 ML VIAL.NEB. INHALATION (07:18)
[2021-06-09] MEDS: Enoxaparin 40 MG/0.4 ML Syringe SC (08:56)
[2021-06-09] MEDS: guaiFENesin 1,200 MG Tablet 1200 MG PO (08:57)
[2021-06-09] MEDS: Acetaminophen 325 MG Tablet 650 MG PO (08:58)
[2021-06-09] MEDS: Triamcinolone 0.5% Cream 1 APPLIC TOPICAL (08:58)
--- NOTE | 2021-06-09 10:34 | CASEMGMT ---
MARCUS received a message that patient was approved to go [place] [facility] [place]. MARCUS notified RAUDEL Blanton. Bernadette Blanchard [employer]
--- NOTE | 2021-06-09 10:35 | PCM.TXEXTCAR ---
Documented by User: Martha De Los Santos NP-C 06/09/21 10:46 Diet 06/04/21 10:19 Diet: Regular - General Dietary Modifications:: Fortified Foods Is pt able to select menu?: No Diet Comments: salt and pepper w/ each tray please Routine Orders/Code Status Enema Type: Fleetz Enema Frequency: Daily PRN Suppository Type: Dulcolax 10mg Suppository Frequency: Daily PRN O2 Liters per Minute: 4 O2 Frequency: Continuous Keep PO Greater than or Equal to (%): 90 Code Status: Full Code Wound(s) Right ankle: Wound Type: Pressure Injury Suggestions for Active Care Change Position every (hours): 2 Hours to sit in a chair: 2 Times a day to sit in chair: 2 Therapies Physical Therapy: Eval and Treat Occupational Therapy: Eval and Treat Problem/Diagnosis (1) Acute and chronic respiratory failure with hypercapnia: Status: Chronic (2) Acute hypercapnic respiratory failure: Status: Acute (3) Encephalopathy acute: Status: Acute (4) COPD with acute exacerbation: Status: Chronic (5) Debility: Status: Acute Allergies/Procedures Done in Hospital Allergies No Known Allergies Allergy (Verified 06/03/21 22:30) Procedures: EKG Type of Care/Length of Stay Estimated LOS: Convalescent Care Less Than 30 days Type of Care Needed: Skilled Rehab Potential: Fair Prognosis: Fair Additional Orders/Day of Discharge Additional Orders: Appt June 17, 8:15, with [facility] [address] [phone] Day of Discharge: 06/09/21 Dietary and Speech Recommendations Dietitian Recommendations/Changes: regular diet w/ fortified foods given malnutrition; continue ensure enlive 120mL 4x/day w/ medpass for additional calories/protein if consumed. Follow Up Care Please follow up with your Primary Care Physician in: upon discharge from [facility] Discharge Plan Admission Admit Date/Time: 06/04/21 00:59 Primary Reason for Your Visit: COPD exacerbation Attending Provider: Tracey Richards Primary Care Provider: Care Physician,No Primary Consulting Providers: Jason Goldsmith ; Joseph Ramey ; Jessica De Leon ENVIRONMENTAL FIELD SERVICES TECHNICIAN Discharge Orders/Prescriptions Prescriptions: New acetaminophen [Tylenol] 325 mg Tablet 650 mg PO Q6H PRN PRN (Reason: Pain Score 1-10/Temp > 100.7 F) Qty: 0 RF: 0 triamcinolone acetonide 0.5 % Cream 1 applic topical BID Qty: 0 RF: 0 lisinopril 20 mg Tablet 20 mg PO DAILY Qty: 0 RF: 0 Mucus Relief ER 1,200 mg Tablet Extended Release 12hr 1,200 mg PO BID Qty: 0 RF: 0 Ensure Enlive 0.08 gram-1.5 kcal/mL Liquid 120 ml PO 4X/DAY Qty: 0 RF: 0 levofloxacin 500 mg tablet 500 mg PO DAILY Qty: 1 RF: 0 Continued fluticasone propion-salmeterol [Advair Diskus] 250-50 mcg/dose Blister With Device 1 inh INHALATION BID RF: 0 albuterol sulfate 90 mcg/actuation Hfa Aerosol Inhaler 2 puff INHALATION DAILY RF: 0 Incruse Ellipta 62.5 mcg/actuation Blister With Device 1 inh INHALATION DAILY RF: 0 Discontinued lisinopril 20 mg Tablet 20 mg PO DAILY RF: 0 Referrals / Follow Up: Care Physician,No Primary [Primary Care Provider] - Jessica De Leon ENVIRONMENTAL FIELD SERVICES TECHNICIAN, ENVIRONMENTAL FIELD SERVICES TECHNICIAN-C [Nurse Practitioner] - 06/17/21 8:15 am Disposition Disposition (needs filled in before D/C Order can be placed): [facility] Documented by User: Dr. Tracey Richards MD 06/09/21 11:14 Allergies/Procedures Done in Hospital Allergies No Known Allergies Allergy (Verified 06/03/21 22:30) Discharge Plan Admission Admit Date/Time: 06/04/21 00:59 Primary Reason for Your Visit: COPD exacerbation Attending Provider: Tracey Richards Primary Care Provider: Care Physician,Pattie Primary Consulting Providers: Jason Goldsmith ; Joseph Ramey ; Jessica De Leon ENVIRONMENTAL FIELD SERVICES TECHNICIAN Discharge Orders/Prescriptions Prescriptions: New acetaminophen [Tylenol] 325 mg Tablet 650 mg PO Q6H PRN PRN (Reason: Pain Score 1-10/Temp > 100.7 F) Qty: 0 RF: 0 triamcinolone acetonide 0.5 % Cream 1 applic topical BID Qty: 0 RF: 0 lisinopril 20 mg Tablet 20 mg PO DAILY Qty: 0 RF: 0 Mucus Relief ER 1,200 mg Tablet Extended Release 12hr 1,200 mg PO BID Qty: 0 RF: 0 Ensure Enlive 0.08 gram-1.5 kcal/mL Liquid 120 ml PO 4X/DAY Qty: 0 RF: 0 levofloxacin 500 mg tablet 500 mg PO DAILY Qty: 1 RF: 0 Continued fluticasone propion-salmeterol [Advair Diskus] 250-50 mcg/dose Blister With Device 1 inh INHALATION BID RF: 0 albuterol sulfate 90 mcg/actuation Hfa Aerosol Inhaler 2 puff INHALATION DAILY RF: 0 Incruse Ellipta 62.5 mcg/actuation Blister With Device 1 inh INHALATION DAILY RF: 0 Discontinued lisinopril 20 mg Tablet 20 mg PO DAILY RF: 0 Referrals / Follow Up: Care Physician,No Primary [Primary Care Provider] - Jessica De Leon ENVIRONMENTAL FIELD SERVICES TECHNICIAN, ENVIRONMENTAL FIELD SERVICES TECHNICIAN-C [Nurse Practitioner] - 06/17/21 8:15 am Disposition Disposition (needs filled in before D/C Order can be placed): [facility]
--- NOTE | 2021-06-09 10:43 | CASEMGMT ---
SW went to patient's room. Her son, Charli was also present. MARCUS let them know that patient was approved to go to [facility] and that she will go today. Charli said he has to run home and get some clothes for patient. MARCUS let patient and Charli know that MARCUS will arrange transportation once SW has the orders from the physician. Bernadette ELY
--- NOTE | 2021-06-09 10:46 | PCM.DC.SUM ---
Documented by User: SANTINO Preciado 06/09/21 14:11 Providers Date of Admission: 06/04/21 Primary Care Physician: No Primary Care Phys Consultations 06/04/21 09:40 Consult: [employer] / Pulmonary Medicine Routine Consulting Provider: Pulmonary Medicine [facility] [place] Reason for Consult: hypercapnea EMERGENT Consult: No MD Notified: Yes Date Notified: 06/04/21 Time Notified: 09:42 Method of Notification: Verbal Reason For Visit: COPD EXAC, DEBILLITY Diagnosis Discharge Diagnosis (1) Acute and chronic respiratory failure with hypercapnia: Status: Chronic Code(s): J96.22 - Acute and chronic respiratory failure with hypercapnia (2) Acute hypercapnic respiratory failure: Status: Acute Code(s): J96.02 - Acute respiratory failure with hypercapnia (3) Encephalopathy acute: Status: Acute Code(s): G93.40 - Encephalopathy, unspecified (4) COPD with acute exacerbation: Status: Chronic Code(s): J44.1 - Chronic obstructive pulmonary disease with (acute) exacerbation (5) Debility: Status: Acute Code(s): R53.81 - Other malaise Medications at Discharge Home Medications Incruse Ellipta 1 inh INHALATION DAILY 06/03/21 albuterol sulfate 2 puff INHALATION DAILY 06/03/21 fluticasone propion-salmeterol [Advair Diskus] 1 inh INHALATION BID 06/03/21 acetaminophen [Tylenol] 650 mg PO Q6H PRN PRN #0 tab 06/09/21 food supplemt, lactose-reduced [Ensure Enlive] 120 ml PO 4X/DAY #0 ml 06/09/21 guaifenesin [Mucus Relief ER] 1,200 mg PO BID #0 tab 06/09/21 levofloxacin 500 mg PO DAILY #1 tab 06/09/21 lisinopril 20 mg PO DAILY #0 tab 06/09/21 triamcinolone acetonide 1 applic TOPICAL BID #0 g 06/09/21 Hospital Course Procedures EKG Summary of Care Provided Minutes Spent on Discharge: 35 Hospital Course: Patient was admitted on 06/04/2021 with complaints of COPD exacerbation as well as acute encephalopathy and hypercapnia respiratory failure. Patient underwent a 6-day course of antibiotics as well as steroids. Patient also received BiPAP therapy while she was admitted. Patient encephalopathy has resolved and she is alert and oriented. Patient will be discharged to SNF for further PT and OT due to debility and weakness secondary to COPD exacerbation. Physical Exam Const alert, oriented x3 and no apparent distress General Appearance: cooperative HEENT normocephalic and head/scalp atraumatic Eyes conjunctivae normal and no scleral icterus Neck full ROM and supple Resp normal respiratory effort Effort and Inspection: able to speak in complete sentences and symmetric chest movement Auscultation: diminished lung sounds Cardio regular rate, regular rhythm, S1 normal heart sound, S2 normal heart sound and peripheral pulses 2+ throughout GI normal to inspection, nondistended, normoactive bowel sounds, soft to palpation and non-tender Extremity normal capillary refill and no clubbing, cyanosis or edema General Extremity: no tenderness to palpation of joints or extremities Skin skin turgor normal General Skin Exam: no breakdown Lesions: no lesions Rashes: no rashes Neuro oriented x3, moves all extremities, no focal motor deficits and no sensory deficits noted Psych thought process normal and cooperative Appearance: appropriate Mood & Affect: flat affect Medical Records Data Medical Nutrition Assessment Dietitian: Malnutrition Criteria Met Start: 06/04/21 15:54 Freq: Status: Active Protocol: Document 06/04/21 15:54 AG (Rec: 06/04/21 15:54 AG [id number]) Nutrition Malnutrition Evidence of Malnutrition Exists Yes Malnutrition (severe): Chronic Evidenced By Suboptimal Energy Intake ( Severe),Weight Loss (Severe) Clinical Problem Chronic Disease or Condition Related Malnutrition Etiology severe, chronic malnutrition r /t inadequate energy intake w/ increased energy needs d/t COPD Signs/Symptoms as evidenced by estimated PO intake meeting <75% of estimated nutritional needs >3 months; severe muscle wasting /fat loss upon physical exam; BMI 17.9 Status Active Problem Recommendation Dietitian Recommendations/Changes regular diet w/ fortified foods given malnutrition; continue ensure enlive 120mL 4x/day w/ medpass for additional calories/protein if consumed. Weight / BMI Weight Weight: 104 lb 0.931 oz Body Mass Index (BMI) 17.9 ABG / Lab / Microbiology Data Result Diagrams: 06/09/21 05:28 06/09/21 05:28 Laboratory: Laboratory Results - last 24 hr 06/09/21 05:28: WBC 5.1, RBC 3.17 L, Hgb 10.1 L, Hct 33.5 L, MCV 105.7 H, MCH 31.9, MCHC 30.1 L, RDW Std Deviation 51.4 H, RDW Coeff of Rachell 13.2, Plt Count 180, MPV 9.7, Immature Gran % (Auto) 0.400, Neut % (Auto) 83.7 H, Lymph % (Auto) 6.1 L, [place] % (Auto) 9.8, Eos % (Auto) 0.0, Baso % (Auto) 0.0, Absolute Neuts (auto) 4.3, Absolute Lymphs (auto) 0.31 L, Nucleated RBC % 0, Differential Comment SCANNED 06/09/21 05:28: Sodium 139, Potassium 3.9, Chloride 94 L, Carbon Dioxide 44.0 H, Anion Gap 1 L, BUN 15, Creatinine 0.35 L, Estim Creat Clear Calc 124.18, Est GFR (MDRD) Af Amer 244, Est GFR (MDRD) Non-Af 201, BUN/Creatinine Ratio 43.1 H, Glucose 230 H, Calcium 8.4 L Microbiology: Microbiology 06/03/21 22:40 Blood Culture (Wb) - Anticubital Right Blood Culture - Final No growth in 5 days. 06/03/21 22:45 Blood Culture (Wb) - Left Hand Blood Culture - Final No growth in 5 days. 06/03/21 22:56 Urine Catheter - Catheter Urine Culture - Final Mixed Gram Positive Organisms 06/03/21 22:53 Interface Orders SARS-CoV-2 Antigen (Rapid) - Final D/C Instructions Discharge Diet: No restrictions Call your doctor if you observe: Shortness of breath, Chest pain and Increased palpitations (irregular heartbeat) Meaningful Use Info Meaningful Use Diagnoses (Choose all that apply): None applicable Discharge Plan Admission Admit Date/Time: 06/04/21 00:59 Primary Reason for Your Visit: COPD exacerbation Attending Provider: Tracey Richards Primary Care Provider: Care Physician,No Primary Consulting Providers: Jason Goldsmith ; Joseph Ramey ; Jessica De Leon FIELD CANE SCALER HELPER Instructions Additional Instructions / Restrictions: Patient Problems: Altered Health Status related to Hospitalization Patient Goals: *Optimal Level of Health *Keep Appointments *Medication Compliance *Remain Safe Discharge Orders/Prescriptions Prescriptions: New acetaminophen [Tylenol] 325 mg Tablet 650 mg PO Q6H PRN PRN (Reason: Pain Score 1-10/Temp > 100.7 F) Qty: 0 RF: 0 triamcinolone acetonide 0.5 % Cream 1 applic topical BID Qty: 0 RF: 0 lisinopril 20 mg Tablet 20 mg PO DAILY Qty: 0 RF: 0 Mucus Relief ER 1,200 mg Tablet Extended Release 12hr 1,200 mg PO BID Qty: 0 RF: 0 Ensure Enlive 0.08 gram-1.5 kcal/mL Liquid 120 ml PO 4X/DAY Qty: 0 RF: 0 levofloxacin 500 mg tablet 500 mg PO DAILY Qty: 1 RF: 0 Continued fluticasone propion-salmeterol [Advair Diskus] 250-50 mcg/dose Blister With Device 1 inh INHALATION BID RF: 0 albuterol sulfate 90 mcg/actuation Hfa Aerosol Inhaler 2 puff INHALATION DAILY RF: 0 Incruse Ellipta 62.5 mcg/actuation Blister With Device 1 inh INHALATION DAILY RF: 0 Discontinued lisinopril 20 mg Tablet 20 mg PO DAILY RF: 0 Referrals / Follow Up: Care Physician,No Primary [Primary Care Provider] - Jessica De Leon NP, FIELD CANE SCALER HELPER-C [Nurse Practitioner] - 06/17/21 8:15 am Disposition Disposition (needs filled in before D/C Order can be placed): Longterm Facility Documented by User: Dr. Tracey Richards MD 06/09/21 16:02 Providers Date of Admission: 06/04/21 Reason For Visit: COPD EXAC, DEBILLITY Medications at Discharge Home Medications Incruse Ellipta 1 inh INHALATION DAILY 06/03/21 albuterol sulfate 2 puff INHALATION DAILY 06/03/21 fluticasone propion-salmeterol [Advair Diskus] 1 inh INHALATION BID 06/03/21 acetaminophen [Tylenol] 650 mg PO Q6H PRN PRN #0 tab 06/09/21 food supplemt, lactose-reduced [Ensure Enlive] 120 ml PO 4X/DAY #0 ml 06/09/21 guaifenesin [Mucus Relief ER] 1,200 mg PO BID #0 tab 06/09/21 levofloxacin 500 mg PO DAILY #1 tab 06/09/21 lisinopril 20 mg PO DAILY #0 tab 06/09/21 triamcinolone acetonide 1 applic TOPICAL BID #0 g 06/09/21 ABG / Lab / Microbiology Data Result Diagrams: 06/09/21 05:28 06/09/21 05:28 Discharge Plan Admission Admit Date/Time: 06/04/21 00:59 Primary Reason for Your Visit: COPD exacerbation Attending Provider: Tracey Richards Primary Care Provider: Care Physician,No Primary Consulting Providers: Jason Goldsmith ; Joseph Ramey ; Jessica De Leon FIELD CANE SCALER HELPER Instructions Additional Instructions / Restrictions: Patient Problems: Altered Health Status related to Hospitalization Patient Goals: *Optimal Level of Health *Keep Appointments *Medication Compliance *Remain Safe Discharge Orders/Prescriptions Prescriptions: New acetaminophen [Tylenol] 325 mg Tablet 650 mg PO Q6H PRN PRN (Reason: Pain Score 1-10/Temp > 100.7 F) Qty: 0 RF: 0 triamcinolone acetonide 0.5 % Cream 1 applic topical BID Qty: 0 RF: 0 lisinopril 20 mg Tablet 20 mg PO DAILY Qty: 0 RF: 0 Mucus Relief ER 1,200 mg Tablet Extended Release 12hr 1,200 mg PO BID Qty: 0 RF: 0 Ensure Enlive 0.08 gram-1.5 kcal/mL Liquid 120 ml PO 4X/DAY Qty: 0 RF: 0 levofloxacin 500 mg tablet 500 mg PO DAILY Qty: 1 RF: 0 Continued fluticasone propion-salmeterol [Advair Diskus] 250-50 mcg/dose Blister With Device 1 inh INHALATION BID RF: 0 albuterol sulfate 90 mcg/actuation Hfa Aerosol Inhaler 2 puff INHALATION DAILY RF: 0 Incruse Ellipta 62.5 mcg/actuation Blister With Device 1 inh INHALATION DAILY RF: 0 Discontinued lisinopril 20 mg Tablet 20 mg PO DAILY RF: 0 Referrals / Follow Up: Care Physician,No Primary [Primary Care Provider] - Jessica De Leon FIELD CANE SCALER HELPER, FIELD CANE SCALER HELPER-C [Nurse Practitioner] - 06/17/21 8:15 am Disposition Disposition (needs filled in before D/C Order can be placed): Longterm Facility Charges/Coding Addendum Addendum: Patient seen by Martha DE under my supervision Patient is a 60-year-old female with a past medical history as outlined was admitted through the ED on 06/04/2021 with a complaint of weakness and altered mental status. Patient was found unresponsive. He has a history of COPD on 3.5 L of oxygen. She was found to have markedly elevated PCO2 on admission at 165 and PO2 was low was 46.1 with pH of 7.21. She was admitted and managed for acute on chronic hypoxic and hypercapnic respiratory failure due to COPD exacerbation. She was started on BiPAP and IV Solu-Medrol and admitted. She was also managed for severe protein calorie malnutrition with a BMI of 17.9. Dietitian was consulted and she was put on nutrition supplements like Ensure. Patient's confusion gradually improved acid PCO2 went down and she was transitioned to her nasal cannula oxygen. Patient and family decided that she needed to go to a custodial unit. She was skilled for custodial unit and discharged to SNF on 06/09/2021. She is to follow-up with her primary care doctor and PCP and counseled to be compliant with her oxygen. Patient was seen and examined prior to discharge. She had no complaints and felt well. Review of systems otherwise negative. Labs and vitals reviewed. Medication reviewed and reconciled. O/E: Const alert, oriented x3 and no apparent distress Nutritional Appearance: underweight HEENT head/scalp atraumatic and moist oral mucous membranes Head and Scalp: normocephalic Eyes PERRL, EOMs intact bilaterally and conjunctivae normal Neck no lymphadenopathy, supple and no JVD Resp no retractions and no use of accessory muscles Resp Narrative: on 4L byb nasal canula Auscultation: diminished lung sounds Cardio regular rate, regular rhythm, no murmurs and no JVD GI normal to inspection, nondistended, normoactive bowel sounds, soft to palpation, non-tender and non-distended Extremity normal to inspection, full ROM and no clubbing, cyanosis or edema Peripheral Pulses: Yes pulses 2+ throughout Skin no rashes or lesions noted, no wounds, skin turgor normal and no jaundice Neuro CN's II-XII intact bilaterally Psych affect flat Plan is for discharge to custodial facility today. Rest as per Wilfrid Walker, FIELD CANE SCALER HELPER-C's note which I have reviewed and endorsed. Visit Charges Inpatient E&M: 58218 Disch Hosp
--- NOTE | 2021-06-09 11:26 | PHA.DC.MR ---
Pharmacy Service has performed discharge medication reconciliation for this patient upon transfer to [facility]. Home Medications Incruse Ellipta 1 inh INHALATION DAILY 06/03/21 albuterol sulfate 2 puff INHALATION DAILY 06/03/21 fluticasone propion-salmeterol [Advair Diskus] 1 inh INHALATION BID 06/03/21 acetaminophen [Tylenol] 650 mg PO Q6H PRN PRN #0 tab 06/09/21 food supplemt, lactose-reduced [Ensure Enlive] 120 ml PO 4X/DAY #0 ml 06/09/21 guaifenesin [Mucus Relief ER] 1,200 mg PO BID #0 tab 06/09/21 levofloxacin 500 mg PO DAILY #1 tab 06/09/21 lisinopril 20 mg PO DAILY #0 tab 06/09/21 triamcinolone acetonide 1 applic TOPICAL BID #0 g 06/09/21 The patient's discharge medication list was reviewed for discrepancies and discrepancies were resolved.
--- NOTE | 2021-06-09 12:38 | CASEMGMT ---
MARCUS faxed orders to [facility]. Completed convalescent on HENS. MARCUS also faxed the negative COVID test to [facility]. MARCUS spoke with patient about when her son will return with her clothes. Patient called Charli and it was decided MARCUS will set up transportation for 3p. MARCUS arranged for patient to get picked up 3p via [employer] van. MARCUS notified RN and social secretary. MARCUS called Gisele at [facility] and left her a voice mail letting her know patient will be picked up at 3p. MARCUS also called Allyn from [facility] and left her a voice mail letting her know patient is being discharged to [facility] today. MARCUS also faxed d/c instructions to Allyn. Plan: d/c to [facility] under skilled level of care on a convalescent stay. [facility] transported via [employer] van. Bernadette Blanchard SEMIAUTOMATIC TAPER OPERATOR JHOANA
--- NOTE | 2021-06-09 15:25 | NURSING ---
report called to Jodee Cottrell rn at [facility]
--- NOTE | 2021-06-09 15:40 | CASEMGMT ---
MARCUS received a message from Gisele at [facility]. She said they need bipap settings for patient as they do not do venti mask. Patient is not on venti mask but the bipap mode she is on is AVAPS. [facility] does not have this setting. Respiratory Therapist and PLASTICS AND COMPOSITES INSPECTOR Franny adjusted the settings to reflect bipap mode. MARCUS faxed this to Gisele and also called her letting her know it was faxed. Bernadette Blanchard RETAIL SHIFT SUPERVISOR JHOANA
== END 2021-06-09 15:17 | disposition skilled nursing facility (03) | DRG 189 ==
LOC: ED 06-04 00:32 → PCU 06-04 01:14
PROVIDERS: Internal Medicine; Nurse Practitioner Family; Physician Assistant; Admitting Provider Hospitalist; Emergency Provider Emergency Medicine; Visit Provider Student in an Organized Health Care Education/Training Program
DX: J96.22 Acute and chronic respiratory failure with hypercapnia (principal); E43 Unspecified severe protein-calorie malnutrition; G93.41 Metabolic encephalopathy; J44.1 Chronic obstructive pulmonary disease with (acute) exacerbation; Z68.1 Body mass index [BMI] 19.9 or less, adult; E87.2 Acidosis; Z20.822 Contact with and (suspected) exposure to COVID-19; J96.21 Acute and chronic respiratory failure with hypoxia; I10 Essential (primary) hypertension; F17.210 Nicotine dependence, cigarettes, uncomplicated; R29.6 Repeated falls; Z91.19 Patient's noncompliance with other medical treatment and regimen; Z79.51 Long term (current) use of inhaled steroids; Z99.81 Dependence on supplemental oxygen; Z79.899 Other long term (current) drug therapy
CPT/HCPCS: 36415; 36600; 51702; 70450; 71045; 80048; 80053; 81001; 82803; 83540; 83550; 83605; 84484; 85025; 87040; 87086; 87088; 87426; 93005; 94002; 94003; 94640; 94660; 94667; 97110; 97162; 97166; 97530; 97535; 97802; 97803; 99251; 99285; 99406; J7030; J7040; A4216; G0463; J1940

== ENCOUNTER 2021-07-24 22:45 | Inpatient (IN) | payer MEDICARE, MEDICAID, SELFPAY ==
[2021-07-24] VITALS (7 sets, daily range): BP systolic 178–190; BP diastolic 113–126; PULSE 129–132; RESP 11–16; TEMP 35.7; O2SAT 86–95; BMI 19.4
--- NOTE | 2021-07-24 22:50 | RAD_ITS ---
INDICATION: SOB EXAMINATION/TECHNIQUE: X-RAY - XR Chest 1 View COMPARISON: 06/03/2021 chest x-ray FINDINGS: LINES/DEVICES: None. LUNGS: Significant increased lung volumes and flattened diaphragm consistent with air trapping. There is some hyperlucency in the upper lungs suggesting emphysematous changes. Reticular and airspace opacities in the left, greater than right perihilar and lower lungs likely representing infection. No pleural effusion. No pneumothorax. MEDIASTINUM AND CARDIOVASCULAR STRUCTURES: Normal size and contour of the cardiomediastinal silhouette. No evidence of pulmonary vascular congestion. BONES AND SOFT TISSUES: No abnormality within limits of the exam. RAD/Chest 1 View (Portable) IMPRESSION: 1. Reticular and airspace opacities left, greater than right perihilar and lower lungs likely representing infection. 2. Emphysema. Electronically Signed: Toni Hernandez DO at 23:56 EST Tel , Service support ,
--- NOTE | 2021-07-24 22:51 | EKG12_ITS ---
Test Reason : SOB Blood Pressure : / mmHG Vent. Rate : 133 BPM Atrial Rate : 133 BPM P-R Int : 134 ms QRS Dur : 086 ms QT Int : 282 ms P-R-T Axes : 085 075 258 degrees QTc Int : 419 ms Sinus tachycardia Biatrial enlargement Septal infarct , age undetermined Marked ST abnormality, possible inferior subendocardial injury Abnormal ECG Confirmed by RUSSELL ALEMAN, VIVIAN ([id number]), art editor ALEXANDER ALLEN ([id number]) on 07/25/2021 11:35:39 AM Referred By: TEETEE Confirmed By:VIVIAN WELLS MD
--- NOTE | 2021-07-24 22:58 | EDS_ITS ---
HPI History of Present Illness Chief Complaint: Shortness of Breath Informant: EMS Narrative Narrative: Patient is nonverbal. Therefore, history and review of systems are severely limited. However, EMS did get quite a bit of good history. This patient evidently has severe advanced COPD and is on home oxygen. She was evidently recently in rehab and discharged home. She had used BiPAP in rehab but that has not yet been set up at home. My understanding is she has been getting progressively more dyspnea over the last few days and she had worsening symptoms tonight and was getting difficult to arouse. Family stated that she was not to be intubated. When EMS arrived she was tripoding, leaning forward and a bit cyanotic. Her color has markedly improved with oxygen and breathing treatment. But she is not moving much air. Beyond this history I have no further data directly available at this point. I will talk to the family when they arrive. [facility] Medical History COPD (chronic obstructive pulmonary disease) H/O frozen left shoulder HTN (hypertension) Home Medications acetaminophen [Tylenol] 650 mg PO Q6H PRN PRN #0 tab 06/09/21 [Rx Last Taken Unknown] food supplemt, lactose-reduced [Ensure Enlive] 120 ml PO 4X/DAY #0 ml 06/09/21 [Rx Last Taken Unknown] guaifenesin [Mucus Relief ER] 1,200 mg PO BID #0 tab 06/09/21 [Rx Last Taken Unknown] levofloxacin 500 mg PO DAILY #1 tab 06/09/21 [Rx Last Taken Unknown] lisinopril 20 mg PO DAILY #0 tab 06/09/21 [Rx Last Taken Unknown] triamcinolone acetonide 1 applic TOPICAL BID #0 g 06/09/21 [Rx Last Taken Unknown] albuterol sulfate 90 mcg/actuation aerosol inhaler 2 puff INHALATION DAILY #8.5 g 07/15/21 [Rx Last Taken Unknown] bisacodyl 10 mg rectal suppository 10 mg TN DAILY PRN 07/15/21 [History Last Taken Unknown] fluticasone propionate 230 mcg-salmeterol 21 mcg/actuation HFA inhaler 2 puff INHALATION BID #12 g 07/15/21 [Rx Last Taken Unknown] nicotine 7 mg/24 hr daily transdermal patch 1 patch TRANSDERMAL Q24H 07/15/21 [History Last Taken Unknown] spacer #1 ea 07/15/21 [Rx Last Taken Unknown] umeclidinium 62.5 mcg/actuation blister powder for inhalation 1 inh INHALATION DAILY #30 ea 07/15/21 [Rx Last Taken Unknown] ipratropium 0.5 mg-albuterol 3 mg (2.5 mg base)/3 mL nebulization soln 3 ml INHALATION Q4H PRN #180 ml 07/19/21 [Rx Last Taken Unknown] Allergy/AdvReac Type Severity Reaction Status Date / Time No Known Allergies Allergy Verified 07/25/21 01:45 Social History Smoking Status: Current every day smoker tobacco type: cigarettes ROS ROS ED Review of Systems ROS Unobtainable: other Details: See history of present illness. Patient unable to answer question. Likely has CO2 retention. EXAM Physical Exam Const Vital Signs: 07/24/21 22:46 07/24/21 22:51 07/24/21 22:54 Temperature 96.2 F L 96.2 F L Temperature Source Temporal Temporal Pulse Rate 130 H 130 H Respiratory Rate 11 L 11 L Respiratory Effort Accessory Muscle Use Head Bobbing Respiratory Pattern Apnea Blood Pressure 190/126 H Blood Pressure Mean 147 Pulse Ox 86 86 Oxygen Delivery Method Non-Rebreather Non-Rebreather Oxygen Flow Rate (L/min) 15 15 Fraction of Inspired Oxygen (FIO2) 07/24/21 22:55 07/24/21 23:39 07/24/21 23:40 Temperature Temperature Source Pulse Rate 130 H 130 H 129 H Respiratory Rate 12 13 16 Respiratory Effort Respiratory Pattern Normal Normal Blood Pressure 178/113 H Blood Pressure Mean 134 Pulse Ox 95 90 90 Oxygen Delivery Method Bi-pap Oxygen Flow Rate (L/min) Fraction of Inspired Oxygen (FIO2) 75 50 07/24/21 23:41 07/24/21 23:52 07/25/21 00:16 Temperature 97.3 F L Temperature Source Temporal Pulse Rate 132 H 130 H 127 H Respiratory Rate 12 16 12 Respiratory Effort Respiratory Pattern Normal Normal Blood Pressure 155/113 H Blood Pressure Mean 127 Pulse Ox 90 89 Oxygen Delivery Method Bi-pap Oxygen Flow Rate (L/min) Fraction of Inspired Oxygen (FIO2) 40 07/25/21 00:37 Temperature 97 F L Temperature Source Temporal Pulse Rate 127 H Respiratory Rate 16 Respiratory Effort Respiratory Pattern Blood Pressure 148/100 H Blood Pressure Mean 116 Pulse Ox 97 Oxygen Delivery Method Bi-pap Oxygen Flow Rate (L/min) Fraction of Inspired Oxygen (FIO2) Positive cachectic General Appearance ED: cachectic Nutritional Appearance: cachectic HEENT atraumatic Eyes Eyes Narrative: Pupils are about 3 mm bilaterally. Patient will turn and look at me if I say her name from either direction. She will open her eyes when I say her name. Neck supple and no JVD Resp Resp Narrative: Patient's breathing is shallow. She is not moving much air at all. She has very slight wheezing but I do not think she is moving enough air to create a wheeze. I do not hear rales at her base despite her very high blood pressure. I have no reported history of CHF. Cardio regular rhythm Cardio Narrative: Heart rate is tachycardic at about 130. It does appear to be regular. Rate: tachycardic GI non-tender Palpation: soft Extremity Extremity Narrative: Patient does have trace peripheral edema bilaterally. General Extremety ED: Yes edema; Negative for tenderness General Extremity: edema Neuro Neuro Narrative: Patient opens her eyes and turns when you say her name. However I cannot get her to follow simple directions. She is very lethargic. Psych Mood & Affect: depressed Skin Rashes: no rashes MDM MDM MDM Narrative Medical decision making narrative: Patient was suppressed enough respiration and mental status to be intubated. However, my understanding is that the family did not want her intubated because they said she would never come off the ventilator. Considering her history this is a reasonable statement. We will try BiPAP and breathing treatments as long as we can do this until family arrives and we can have a dedicated discussion. It is reasonable to try her on BiPAP to avoid intubation as she would do better long-term if we can do this. She is getting volumes at 300-350 with BiPAP. I did have a long talk with her son. He stated that he other family members and the patient have talked about end-of-life issues. They evidently have had hospice involved with other family members in the past and have had good results. He states that his mom does not want to be on a ventilator. They have talked to several physicians who state that it is unlikely she would ever come off of ventilator. She had talked recently at a birthday about being tired of being sick and in the hospital all the time. She does not want to prolong her existence artificially. This discussion makes sense. It matches her illness. I think it is reasonable to withhold intubation at this time. Also, patient does seem to be improving slightly. She is getting slightly more alert. The patient is now getting progressively more alert. She is awake. She is talking. She does not want the BiPAP on. I will have some discussions with her. Certainly, she should be admitted for this. Her CO2 is markedly elevated at 153. But her pH is 7.015 so she certainly has a component of chronic CO2 retention also. Lactate was slightly up at 2.5. Electrolytes showed an elevated glucose at 335. This may be secondary to steroids. Her white count is minimally up at 11.1 that could be just stress demargination. Trip is also slightly elevated that is likely due to hypoxia. Patient did become much more alert here. At this point she does not need intubation. She has improved significantly with BiPAP. She wanted to take BiPAP off but was convinced by hospitalist to keep this on. Hospice will also get involved as they are interested in this. Patient will be admitted at this time. Lab Data Attestation: I reviewed the patient's lab results. Labs: Laboratory Results - last 24 hr 07/24/21 07/24/21 07/24/21 22:50 22:50 22:50 WBC 11.9 H RBC 4.21 Hgb 13.3 Hct 43.6 MCV 103.6 H MCH 31.6 MCHC 30.5 L RDW Std Deviation 49.0 H RDW Coeff of Rachell 12.8 Plt Count 355 MPV 9.3 Immature Gran % (Auto) 1.400 H Neut % (Auto) 53.5 Lymph % (Auto) 34.9 Rowan % (Auto) 6.1 Eos % (Auto) 3.3 Baso % (Auto) 0.8 Absolute Neuts (auto) 6.4 Absolute Lymphs (auto) 4.16 Nucleated RBC % 0 Sodium 143 Potassium 4.3 Chloride 103 Carbon Dioxide 38.0 H Anion Gap 2 L BUN 19 H Creatinine 0.89 Estim Creat Clear Calc 54.13 Est GFR (MDRD) Af Amer 82 Est GFR (MDRD) Non-Af 68 BUN/Creatinine Ratio 21.3 H Glucose 335 H Lactic Acid 2.5 H* Calcium 9.0 Troponin I High Sens 61 H ABG Data ABG results: ABG 07/24/21 23:21 Specimen Type ART Sample Site R Radial pH 7.02 L* Bicarbonate Actual 39.1 H Total CO2 44 Base Excess 8 H O2 Saturation 91 L O2 % 75 ABG pO2 95 Phong Test Positive Respiration Rate 12 O2 Delivery Device BiPAP POC PEEP 6 POC Pressure Suppt 6 Crit Call To/Read Back Yes Blood Gas Notified Whom dr foster Radiography Diagnostic Testing: Clinical Impression(s) from Imaging Studies Chest X-Ray 07/24/21 22:50 IMPRESSION: 1. Reticular and airspace opacities left, greater than right perihilar and lower lungs likely representing infection. 2. Emphysema. Electronically Signed: Toni Hernandez DO at 23:56 EST Tel , Service support , EKG Initial EKG: Comments: EKG for tachycardia read by me shows sinus rhythm with tachycardic rate at 133. Biatrial enlargement likely from COPD. Nonspecific ST and T wave changes due to heart rate, possible LVH and hypoxia. TN interval, QRS duration and QTc normal. The EKG is similar to 03 June 2021. Critical Care Time Critical Care Time: Yes Critical care time (excluding procedures): 30-74 minutes, Discussing w/Patient &/or Family/Successfactors Consultant, Discussing w/Consultants, Arranging Admission or Transfer, Performing Direct Patient Care at Bedside and - (42 minutes critical care time, repeat evaluations, altering therapy, discussing end-of-life/intubation choices and discussing with netsuite consultant.) Discharge Plan Dx/Rx/DC Orders Clinical Impression: COPD with acute exacerbation, Acute on chronic respiratory failure with hypoxia, Respiratory failure with hypercapnia, Acidosis, lactic Disposition Disposition: Acute Care [facility] Discharge Date/Time: 07/25/21 01:16
[2021-07-24] MEDS: Ipratropium/Albuterol Sulfate 3 ML AMPUL.NEB INHALATION (23:02)
[2021-07-24] MEDS: Albuterol 2.5 MG/3 ML VIAL.NEB. INHALATION (23:02)
[2021-07-24 23:03] LABS: Absolute Lymphocyte Count 4.16 X10^3/uL (0.83-4.51); Absolute Neutrophil Count 6.4 X10^3/uL (2.0-7.7); Basophil# 0.09 X10^3/uL; Basophil% 0.8 % (0-1); Eosinophil# 0.39 X10^3/uL; Eosinophils% 3.3 % (0-5); Hematocrit 43.6 % (37-47); Hemoglobin 13.3 g/dL (12.0-15.0); Lymphocyte # 4.16 X10^3/ul (0.83-4.51); Lymphocyte % 34.9 % (19-41); Mean Corp Hgb Conc 30.5 g/dL (32-36); Mean Corpuscular Hgb 31.6 pg (27.0-32.0); Mean Corpuscular Volume 103.6 fL (81-99); Mean Platelet Vol. 9.3 fl (6.2-12.0); Monocyte# 0.73 X10^3/uL; Monocyte% 6.1 % (0-10); NRBC Flagged by Analyzer 0 % (0-5); Neutrophil # 6.38 X10^3/uL (2.7-7.7); Neutrophil % 53.5 % (47-70); Platelet Count 355 K/mm3 (150-450); RBC Distribution Width CV 12.8 % (11.6-14.6); Red Blood Count 4.21 M/mm3 (4.2-5.4); White Blood Count 11.9 K/mm3 (4.4-11.0)
[2021-07-24 23:22] LABS: Anion Gap 2 (5-15); BUN 19 mg/dL (7-18); BUN/Creat Ratio 21.3 RATIO (10-20); Chloride 103 mmol/L (98-107); Creatinine, Serum 0.89 mg/dL (0.55-1.02); EST Glomerular Filtration Rate 68 mL/min (>60); Est Glom Filt Rate - Afr Amer 82 mL/min (>60); Estimated Creatinine Clearance 54.13 ml/min; Glucose 335 mg/dL (74-106); Potassium 4.3 mmol/L (3.5-5.1); Sodium Level 143 mmol/L (136-145); Troponin-I HS 61 pg/mL (3.0-54.0)
[2021-07-24 23:26] LABS: Allen Test Positive; Base Excess 8 mmol/L (-2 to +2); Bicarbonate 39.1 mmol/L (22-26); Blood Gas Specimen Type ART; FI02 75; O2 Delivery Device BiPAP; PEEP 6; PO2 95 mmHG (75-100); PS 6; RR 12; SITE R Radial; SO2 91 % (95-99); Total Carbon Dioxide 44 mmol/L; pH 7.02 (7.35-7.45)
[2021-07-24 23:30] LABS: Lactic Acid 2.5 mmol/L (0.4-1.9)
--- NOTE | 2021-07-24 23:40 | ED.RN ---
This RN had an extensive talk with son, at bedside, about Hospice. Son is familiar with hospice as various family members have used hospice in the past. Support was given. Son will get test results back and make family phone calls before he decides hospice vs admission. Son states PT has made statements that she is not wishing to continue to go to the hospital and would rather stay home.
--- NOTE | 2021-07-24 23:53 | CPS ---
pt trying to remove bipap, saying she doesn't want it on.
[2021-07-25] VITALS (28 sets, daily range): BP systolic 86–155; BP diastolic 60–113; PULSE 98–127; RESP 12–21; TEMP 35.8–36.8; O2SAT 89–100; BMI 18.6
--- NOTE | 2021-07-25 00:13 | ED.RN ---
PT is alert, asking for water which was given. PT choked on first swallow, no choking on 2nd drink. 2nd blood culture drawn and sent.
[2021-07-25] MEDS: Piperacil/Tazobactam 3.375 GM/50 ML ML IV (00:15)
--- NOTE | 2021-07-25 00:27 | ED.RN ---
pt has stated several times that she doesn't want BiPap. Son called to come back in to talk with doctors. I did tell PT if she didn't want the BiPap or admission, we could call hospice and have her go home. PT did not answer. MDs updated and aware.
--- NOTE | 2021-07-25 00:42 | HP.PCM.HOS_ITS ---
HPI - General General Date of Admission: 07/25/21 Date of Service: 07/25/21 Chief Complaint: Shortness of breath, lethargy HPI Narrative ARTURO CURRY, is a 61 F who presents to the emergency room at [facility] for evaluation due to shortness of breath and lethargy. Upon arrival in the emergency room, patient was noted to be somnolent and lethargic, she was only able to nod her head, she was not able to carry on a conversation. Patient evidently was discharged recently from extended care facility, BiPAP was supposed to be set up for her according to the son, this was not set up at her home. Patient has an extensive history of COPD, she sees [facility]. Evaluation here included an arterial blood gas which showed a PCO2 of approximately 150. pH was 7.01, PO2 was 95-this was on BiPAP. Patient's white blood cell count was 11.9, chemistry profile showed a BUN of 19, and a glucose of 335, otherwise it was unremarkable. Patient's lactic acid was elevated at 2.5, patient's chest x-ray showed bilateral infiltrates worse on the left, patient's Covid antigen test was negative. Patient stated that she was a DNR without intubation at this time. Patient initially told nursing that she wanted her BiPAP taken off but I talked with her and her son in the room and she is agreed to wear BiPAP. Patient is also consented to talk to hospice in consultation. Patient will be admitted to PCU, she will remain on BiPAP for now, she will be seen in consultation by hospice, patient will be placed on IV antibiotics, I have asked that a PCR Covid test be performed as well as a respiratory panel be performed on the patient. Prognosis overall is poor, patient and family appear aware of this. [facility] Medical History COPD (chronic obstructive pulmonary disease) H/O frozen left shoulder HTN (hypertension) Home Medications acetaminophen [Tylenol] 650 mg PO Q6H PRN PRN #0 tab 06/09/21 [Rx Last Taken Unknown] food supplemt, lactose-reduced [Ensure Enlive] 120 ml PO 4X/DAY #0 ml 06/09/21 [Rx Last Taken Unknown] guaifenesin [Mucus Relief ER] 1,200 mg PO BID #0 tab 06/09/21 [Rx Last Taken Unknown] levofloxacin 500 mg PO DAILY #1 tab 06/09/21 [Rx Last Taken Unknown] lisinopril 20 mg PO DAILY #0 tab 06/09/21 [Rx Last Taken Unknown] triamcinolone acetonide 1 applic TOPICAL BID #0 g 06/09/21 [Rx Last Taken Unknown] albuterol sulfate 90 mcg/actuation aerosol inhaler 2 puff INHALATION DAILY #8.5 g 07/15/21 [Rx Last Taken Unknown] bisacodyl 10 mg rectal suppository 10 mg ND DAILY PRN 07/15/21 [History Last Taken Unknown] fluticasone propionate 230 mcg-salmeterol 21 mcg/actuation HFA inhaler 2 puff INHALATION BID #12 g 07/15/21 [Rx Last Taken Unknown] nicotine 7 mg/24 hr daily transdermal patch 1 patch TRANSDERMAL Q24H 07/15/21 [History Last Taken Unknown] spacer #1 ea 07/15/21 [Rx Last Taken Unknown] umeclidinium 62.5 mcg/actuation blister powder for inhalation 1 inh INHALATION DAILY #30 ea 07/15/21 [Rx Last Taken Unknown] ipratropium 0.5 mg-albuterol 3 mg (2.5 mg base)/3 mL nebulization soln 3 ml INHALATION Q4H PRN #180 ml 07/19/21 [Rx Last Taken Unknown] Allergy/AdvReac Type Severity Reaction Status Date / Time No Known Allergies Allergy Verified 07/15/21 13:13 Social History Smoking Status: Current every day smoker tobacco type: cigarettes ROS ROS Narrative Review of systems was unable to be obtained from the patient due to encephalopathy from hypercapnia Vital Signs Vital Signs Vital Signs: 07/24/21 22:46 07/24/21 22:51 07/24/21 22:54 Temperature 96.2 F L 96.2 F L Temperature Source Temporal Temporal Pulse Rate 130 H 130 H Respiratory Rate 11 L 11 L Respiratory Effort Accessory Muscle Use Head Bobbing Respiratory Pattern Apnea Blood Pressure 190/126 H Blood Pressure Mean 147 Pulse Ox 86 86 Oxygen Delivery Method Non-Rebreather Non-Rebreather Oxygen Flow Rate (L/min) 15 15 Fraction of Inspired Oxygen (FIO2) 07/24/21 22:55 07/24/21 23:39 07/24/21 23:40 Temperature Temperature Source Pulse Rate 130 H 130 H 129 H Respiratory Rate 12 13 16 Respiratory Effort Respiratory Pattern Normal Normal Blood Pressure 178/113 H Blood Pressure Mean 134 Pulse Ox 95 90 90 Oxygen Delivery Method Bi-pap Oxygen Flow Rate (L/min) Fraction of Inspired Oxygen (FIO2) 75 50 07/24/21 23:41 07/24/21 23:52 07/25/21 00:16 Temperature 97.3 F L Temperature Source Temporal Pulse Rate 132 H 130 H 127 H Respiratory Rate 12 16 12 Respiratory Effort Respiratory Pattern Normal Normal Blood Pressure 155/113 H Blood Pressure Mean 127 Pulse Ox 90 89 Oxygen Delivery Method Bi-pap Oxygen Flow Rate (L/min) Fraction of Inspired Oxygen (FIO2) 40 07/25/21 00:37 Temperature 97 F L Temperature Source Temporal Pulse Rate 127 H Respiratory Rate 16 Respiratory Effort Respiratory Pattern Blood Pressure 148/100 H Blood Pressure Mean 116 Pulse Ox 97 Oxygen Delivery Method Bi-pap Oxygen Flow Rate (L/min) Fraction of Inspired Oxygen (FIO2) Weight Weight: 53 kg Body Mass Index (BMI) 19.4 Physical Exam Const alert, no apparent distress and healthy appearing General Appearance: well kempt and well developed Orientation / Consciousness: awake, oriented to person, oriented to place and oriented to time HEENT normocephalic, head/scalp atraumatic, hearing grossly normal bilaterally and moist oral mucous membranes Eyes PERRL, EOMs intact bilaterally and conjunctivae normal Neck nuchal rigidity, supple, no JVD, thyroid normal and no carotid bruits General: trachea midline Resp Resp Narrative: Breath sounds are distant bilaterally, Patient is tachypneic Auscultation: Negative for rales, rhonchi or wheezes Cardio regular rate, regular rhythm, S1 normal heart sound, S2 normal heart sound, no murmurs, no rub and no gallops GI normal to inspection, nondistended, normoactive bowel sounds, soft to palpation, non-tender and non-distended Extremity no clubbing, cyanosis or edema Skin no rashes or lesions noted General Skin Exam: no breakdown Neuro oriented x3, CN's II-XII intact bilaterally, no focal motor deficits and no sensory deficits noted Sensorium / Orientation: awake and alert Speech: speech normal Psych thought process normal and affect normal Results Lab / Micro Data Result Diagrams: 07/24/21 22:50 07/24/21 22:50 Labs: Laboratory Results - last 24 hr 07/24/21 22:50: WBC 11.9 H, RBC 4.21, Hgb 13.3, Hct 43.6, MCV 103.6 H, MCH 31.6, MCHC 30.5 L, RDW Std Deviation 49.0 H, RDW Coeff of Rachell 12.8, Plt Count 355, MPV 9.3, Immature Gran % (Auto) 1.400 H, Neut % (Auto) 53.5, Lymph % (Auto) 34.9, Burke % (Auto) 6.1, Eos % (Auto) 3.3, Baso % (Auto) 0.8, Absolute Neuts (auto) 6.4, Absolute Lymphs (auto) 4.16, Nucleated RBC % 0 07/24/21 22:50: Sodium 143, Potassium 4.3, Chloride 103, Carbon Dioxide 38.0 H, Anion Gap 2 L, BUN 19 H, Creatinine 0.89, Estim Creat Clear Calc 54.13, Est GFR (MDRD) Af Amer 82, Est GFR (MDRD) Non-Af 68, BUN/Creatinine Ratio 21.3 H, Glucose 335 H, Calcium 9.0, Troponin I High Sens 61 H 07/24/21 22:50: Lactic Acid 2.5 H* Micro: Microbiology 07/24/21 22:55 Nasal Secretion SARS-CoV-2 Antigen (Rapid) - Final ABG Data ABG results: ABG 07/24/21 23:21 Specimen Type ART Sample Site R Radial pH 7.02 L* Bicarbonate Actual 39.1 H Total CO2 44 Base Excess 8 H O2 Saturation 91 L O2 % 75 ABG pO2 95 Phong Test Positive Respiration Rate 12 O2 Delivery Device BiPAP POC PEEP 6 POC Pressure Suppt 6 Crit Call To/Read Back Yes Blood Gas Notified Whom dr foster Radiology Impression Chest X-Ray 07/24/21 22:50 IMPRESSION: 1. Reticular and airspace opacities left, greater than right perihilar and lower lungs likely representing infection. 2. Emphysema. Electronically Signed: Toni Hernandez DO at 23:56 EST Tel , Service support , Assessment & Plan Assessment/Plan (1) Pulmonary cachexia due to chronic obstructive pulmonary disease: PLAN: 1. Acute on chronic combined respiratory failure-patient currently is stable on BiPAP at this time, she will be admitted to PCU, pulse ox will be monitored. #2 bilateral pneumonia-etiology unclear, patient was placed on Zosyn #3 essential hypertension #4 noncompliance with medical regimen-patient continues to smoke #5 severe caloric and protein malnutrition-nutritional services will see patient #6 generalized debility Patient is a DNR CC arrest no intubation, I will have hospice consultation with the patient. Prognosis overall is poor. Charges/Coding Visit Charges Inpatient E&M: 87316 Init Hosp L3
--- NOTE | 2021-07-25 01:28 | PCS.PANDOC ---
PANDEMIC DOCUMENTATION INITIATED: Date: 03/21/2021 Time: 190
[2021-07-25 02:58] LABS: Reflex Lactate? Y
[2021-07-25 04:08] LABS: Lactic Acid 1.8 mmol/L (0.4-1.9)
--- NOTE | 2021-07-25 04:10 | NURSING ---
Pt taken off bipap and placed on nonrebreather to have a drink of water. Patient advised to put bipap mask back on to blow off more CO2, but she is refusing. Patient states she will wear it after a couple hours break.
[2021-07-25] MEDS: 0.9% Saline Lock 10 ML Syringe IV ×2 (05:51→20:46)
[2021-07-25 06:06] LABS: pCO2 153.3 mmHg (35-45)
[2021-07-25 06:55] LABS: Bedside Glucose 122 mg/dL (70-110)
[2021-07-25] MEDS: Ipratropium/Albuterol Sulfate 3 ML AMPUL.NEB INHALATION ×5 (06:57→22:14)
--- NOTE | 2021-07-25 06:58 | CPS ---
pt currently refusing bipap
[2021-07-25] MEDS: guaiFENesin 1,200 MG Tablet 1200 MG PO ×2 (09:00→20:46)
[2021-07-25] MEDS: Heparin Injection (Vial) 5,000 UNIT/ML VIAL 5000 UNIT SC ×2 (09:00→20:45)
--- NOTE | 2021-07-25 09:46 | CASEMGMT ---
MARCUS received a call from Christi wrapper caser with [facility]. She asked that MARCUS fax d/c instructions when patient is ready for discharge. Bernadette ELY
--- NOTE | 2021-07-25 10:10 | CASEMGMT ---
MARCUS was informed by charge lpn that patient's son is wanting patient to go to a usp as he cannot care for her anymore. MARCUS attempted to call patient's son Charli, but he has a voice mailbox that has not been set up. MARCUS will try again. Bernadette ELY
--- NOTE | 2021-07-25 10:16 | CASEMGMT ---
Pt was sent to [facility] at discharge of last visit and on bipap while there. Pt did f/u with pulmonary medicine of [place] on 07/15/21 while still admitted at [facility] and the son was under the impression that pt would have some sort of bipap once discharged from [facility]. Per pul note, states that pt is ideal candidate for NIV but per son, pt was never set up. Call to Noa, nurse at pul office and she states she cannot find anywhere that order was faxed but states that pt has bipap at home and this RN CM informed her that pt does not have bipap at home. Pt has home oxygen thru [facility] already and Noa states that's who they would have sent it to to get set up. Call to [facility] and they state they never received order for NIV and they provided fax number to this RN CM, . Call back to Noa at [facility] med office and she states she will fax order with documentation. Noa also updated that son, Anmol, upset that bipap/NIV not set up and she voices understanding but is unsure what happened with order. Per [facility], they could have NIV set up 07/27/[address] Alfred, Nuvia RN, and Dave, PCU charge, updated on all, voice understanding. Son to be updated once this RN CM can confirm that NIV to be set up. CM to follow. Paul ULRICH CM
--- NOTE | 2021-07-25 10:22 | CASEMGMT ---
MARCUS received a return call from patient's son Charli. MARCUS mentioned MARCUS was told that he is looking for patient to go to a fci. Charli said that is not accurate. He asked if Hospice has come in to see patient yet. Charli would like for patient to come home with him on Hospice as long as she can have a bipap. Charli said she has only been home for 5-6 days from the fci and here she is back in the hospital again. Charli said the only reason she is in the hospital is because she does not have that machine. MARCUS told Charli that the RN MATTHEW Pedersen is on the phone as we speak trying to figure out what happened with patient getting a bipap. MARCUS let him know someone will be in touch with him once we know more. Bernadette ELY
[2021-07-25 12:20] LABS: Bedside Glucose 143 mg/dL (70-110)
--- NOTE | 2021-07-25 13:23 | CASEMGMT ---
SW spoke with patient. Introduced self and role at [facility]. SW asked patient if the physician spoke to her about Hospice. Patient said she thinks the doctor spoke to her son about it. Patient told SW she does not remember how she got here. She said she needs a bipap. SW told patient that the RN MATTHEW is working on getting her a machine. SW asked patient if she feels she will be strong enough to go home. She said she thinks she will be okay. SW will talk with physician regarding Hospice for patient. Bernadette ELY
[2021-07-25 15:26] LABS: Bedside Glucose 96 mg/dL (70-110)
--- NOTE | 2021-07-25 17:25 | CHAPLAIN ---
Type of Pastoral Visit _x__ Initial Visit ___ Follow-up Visit ___ On-call Visit ___ General Patient Visit ___ Spiritual Assessment ___ Family Conference ___ Bereavement ___ Rapid Response ___ Code Blue ___ Other (describe below) Pastoral Care Referral From _x__ Patient ___ Family ___ Nurse ___ Physician ___ Siderographer ___ Hot Dipper ___ Other (describe below) Sacrament/Intervention _x__ Active listening ___ Anointing ___ Jewish ___ Bereavement ___ Communion ___ Columba exploration ___ ___ Life review ___ Prayer ___ Reconciliation ___ Sacrament of Sick _x__ Supportive presence ___ Wedding ___ Other (describe below) Pastoral Comments patient is quiet but alert; son is in the room talking to pt about what she can expect for future care; son explains they had a delay in bi-pap delivery and pt was not breathing well; 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
--- NOTE | 2021-07-25 17:39 | PCM.PN.HOSP ---
Subjective Subjective Patient was seen and examined. Admitted today with shortness of breath and lethargy. Patient was. BiPAP set up but this could not be done prior to discharge from the longterm. Patient was seen, she is more alert, on 4 L of oxygen Continue with breathing treatments as needed Objective Data Objective Data Vital Signs: Vital Signs Temp Pulse Resp BP Pulse Ox 98.2 F 104 H 16 103/66 94 07/25/21 15:10 07/25/21 15:32 07/25/21 15:32 07/25/21 15:10 07/25/21 15:10 Oxygen Flow Rate (L/min) 3 Oxygen Delivery Method High Flow Weight: 50.9 kg Body Mass Index (BMI) 18.6 Intake & Output: Intake and Output for Last 24 Hours 07/23/21 07/24/21 07/25/21 23:59 23:59 23:59 Intake Total 530 / 530 Output Total 600 / 600 Balance -70 / -70 Lab / Micro Data Result Diagrams: 07/24/21 22:50 07/24/21 22:50 Labs: Laboratory Results - last 24 hr 07/24/21 22:50: WBC 11.9 H, RBC 4.21, Hgb 13.3, Hct 43.6, MCV 103.6 H, MCH 31.6, MCHC 30.5 L, RDW Std Deviation 49.0 H, RDW Coeff of Rachell 12.8, Plt Count 355, MPV 9.3, Immature Gran % (Auto) 1.400 H, Neut % (Auto) 53.5, Lymph % (Auto) 34.9, Whiteside % (Auto) 6.1, Eos % (Auto) 3.3, Baso % (Auto) 0.8, Absolute Neuts (auto) 6.4, Absolute Lymphs (auto) 4.16, Nucleated RBC % 0 07/24/21 22:50: Sodium 143, Potassium 4.3, Chloride 103, Carbon Dioxide 38.0 H, Anion Gap 2 L, BUN 19 H, Creatinine 0.89, Estim Creat Clear Calc 54.13, Est GFR (MDRD) Af Amer 82, Est GFR (MDRD) Non-Af 68, BUN/Creatinine Ratio 21.3 H, Glucose 335 H, Calcium 9.0, Troponin I High Sens 61 H 07/24/21 22:50: Lactic Acid 2.5 H* 07/25/21 00:40: COVID-19 (BENJAMIN) Not Detected 07/25/21 03:15: Lactic Acid 1.8 07/25/21 06:47: POC Glucose 122 H 07/25/21 12:09: POC Glucose 143 H 07/25/21 15:16: POC Glucose 96 Micro: Microbiology 07/25/21 Unknown Mucosa - Nose Respiratory Panel (PCR) - Final 07/24/21 22:55 Nasal Secretion SARS-CoV-2 Antigen (Rapid) - Final ABG Data ABG results: ABG 07/24/21 23:21 Specimen Type ART Sample Site R Radial pH 7.02 L* Bicarbonate Actual 39.1 H Total CO2 44 Base Excess 8 H O2 Saturation 91 L O2 % 75 ABG pCO2 153.3 H* ABG pO2 95 Phong Test Positive Respiration Rate 12 O2 Delivery Device BiPAP POC PEEP 6 POC Pressure Suppt 6 Crit Call To/Read Back Yes Blood Gas Notified Whom dr ramos Radiography Diagnostic Testing: Radiology Impression Chest X-Ray 07/24/21 22:50 IMPRESSION: 1. Reticular and airspace opacities left, greater than right perihilar and lower lungs likely representing infection. 2. Emphysema. Electronically Signed: Toni Hernandez DO at 23:56 EST Tel , Service support ,
[2021-07-25] MEDS: Acetaminophen 325 MG Tablet 650 MG PO (17:52)
[2021-07-25 20:56] LABS: Bedside Glucose 128 mg/dL (70-110)
[2021-07-26] VITALS (16 sets, daily range): BP systolic 94–153; BP diastolic 68–76; PULSE 91–108; RESP 12–20; TEMP 36.7–36.9; O2SAT 94–99
[2021-07-26] MEDS: Ipratropium/Albuterol Sulfate 3 ML AMPUL.NEB INHALATION ×5 (03:07→19:14)
[2021-07-26 06:40] LABS: Bedside Glucose 109 mg/dL (70-110)
[2021-07-26 06:47] LABS: Absolute Neutrophil Count 7.8 X10^3/uL (2.0-7.7); Hematocrit 34.1 % (37-47); Hemoglobin 10.4 g/dL (12.0-15.0); Lymphocyte % 7.6 % (19-41); Mean Corp Hgb Conc 30.5 g/dL (32-36); Mean Corpuscular Hgb 30.3 pg (27.0-32.0); Mean Corpuscular Volume 99.4 fL (81-99); Mean Platelet Vol. 9.6 fl (6.2-12.0); Monocyte# 0.69 X10^3/uL; Monocyte% 7.4 % (0-10); NRBC Flagged by Analyzer 0 % (0-5); Neutrophil # 7.83 X10^3/uL (2.7-7.7); Neutrophil % 84.5 % (47-70); Platelet Count 291 K/mm3 (150-450); RBC Distribution Width CV 12.9 % (11.6-14.6); RBC Distribution Width SD 46.7 fl (35.1-43.9); Red Blood Count 3.43 M/mm3 (4.2-5.4); White Blood Count 9.3 K/mm3 (4.4-11.0)
[2021-07-26] MEDS: 0.9% Saline Lock 10 ML Syringe IV ×3 (07:04→20:32)
[2021-07-26 07:09] LABS: AST(SGOT) 31 U/L (15-37); Alanine Aminotransfer ALT/SGPT 28 U/L (13-56); Alkaline Phosphatase 59 U/L (45-117); Anion Gap 5 (5-15); BUN 21 mg/dL (7-18); BUN/Creat Ratio 39.7 RATIO (10-20); Calcium,Total 8.8 mg/dL (8.5-10.1); Chloride 100 mmol/L (98-107); Creatinine, Serum 0.53 mg/dL (0.55-1.02); EST Glomerular Filtration Rate 124 mL/min (>60); Est Glom Filt Rate - Afr Amer 150 mL/min (>60); Globulin 3.1 g/dL (2.2-4.2); Glucose 129 mg/dL (74-106); Potassium 3.9 mmol/L (3.5-5.1); Protein, Total 6.1 g/dL (6.4-8.2); Sodium Level 139 mmol/L (136-145)
[2021-07-26] MEDS: guaiFENesin 1,200 MG Tablet 1200 MG PO ×2 (08:59→20:23)
[2021-07-26] MEDS: Heparin Injection (Vial) 5,000 UNIT/ML VIAL 5000 UNIT SC ×2 (08:59→20:30)
--- NOTE | 2021-07-26 09:29 | CASEMGMT ---
Per Marizol at [facility], they did receive order for NIV and NIV should be set for pt tomorrow. This RN CM left contact number for any further questions/concerns. Dr. Alfred updated on all, voices understanding. Son would still like to speak with Hospice and Karlene VELAZQUEZ following. Paul RN CM
--- NOTE | 2021-07-26 09:45 | PCM.PN.HOSP ---
Subjective Subjective Follow-up on acute respiratory failure/acute COPD exacerbation: Patient was seen and examined. She continues to have progressive shortness of breath. She is on 4 L of oxygen. She has needed more breathing treatments. Objective Data Objective Data Vital Signs: Vital Signs Temp Pulse Resp BP Pulse Ox 98.5 F 108 H 19 H 119/68 96 07/26/21 08:57 07/26/21 08:57 07/26/21 08:57 07/26/21 08:57 07/26/21 08:57 Oxygen Flow Rate (L/min) 3 Oxygen Delivery Method Nasal Cannula Weight: 50.9 kg Body Mass Index (BMI) 18.6 Intake & Output: Intake and Output for Last 24 Hours 07/24/21 07/25/21 07/26/21 23:59 23:59 23:59 Intake Total 770 / 970 500 / 500 Output Total 800 / 1060 660 / 660 Balance -30 / -90 -160 / -160 Lab / Micro Data Result Diagrams: 07/26/21 05:30 07/26/21 05:30 Labs: Laboratory Results - last 24 hr 07/25/21 12:09: POC Glucose 143 H 07/25/21 15:16: POC Glucose 96 07/25/21 20:45: POC Glucose 128 H 07/26/21 05:30: WBC 9.3, RBC 3.43 L, Hgb 10.4 L, Hct 34.1 L, MCV 99.4 H, MCH 30.3, MCHC 30.5 L, RDW Std Deviation 46.7 H, RDW Coeff of Rachell 12.9, Plt Count 291, MPV 9.6, Immature Gran % (Auto) 0.500, Neut % (Auto) 84.5 H, Lymph % (Auto) 7.6 L, [place] % (Auto) 7.4, Eos % (Auto) 0.0, Baso % (Auto) 0.0, Absolute Neuts (auto) 7.8 H, Absolute Lymphs (auto) 0.70 L, Nucleated RBC % 0 07/26/21 05:30: Sodium 139, Potassium 3.9, Chloride 100, Carbon Dioxide 34.0 H, Anion Gap 5, BUN 21 H, Creatinine 0.53 L, Estim Creat Clear Calc 87.30, Est GFR (MDRD) Af Amer 150, Est GFR (MDRD) Non-Af 124, BUN/Creatinine Ratio 39.7 H, Glucose 129 H, Calcium 8.8, Total Bilirubin 0.20, AST 31, ALT 28, Alkaline Phosphatase 59, Total Protein 6.1 L, Albumin 3.0 L, Globulin 3.1, Albumin/Globulin Ratio 1.0 07/26/21 06:34: POC Glucose 109 Micro: Microbiology 07/25/21 Unknown Mucosa - Nose Respiratory Panel (PCR) - Final 07/24/21 22:55 Nasal Secretion SARS-CoV-2 Antigen (Rapid) - Final Physical Exam Narrative Physical exam: General: Alert, Oriented x3, Cooperative, No apparent distress, Well developed HEENT: Atraumatic Oral: Moist Mucosa Neck: Supple Lungs: Clear to auscultation Cardiovascular: HS I+II, regular, no murmurs Abdomen: Bowel Sounds Present, Soft, Non Tender Extremities: No edema Assessment & Plan Assessment/Plan (1) Pulmonary cachexia due to chronic obstructive pulmonary disease: PLAN: 1. Acute on chronic combined respiratory failure, in a patient with end-stage COPD Patient needs a BiPAP machine at home Case management working on this Currently on 4 L of oxygen Continue on breathing treatments, IV Solu-Medrol, IV antibiotics -ceftriaxone azithromycin 2. Acute bilateral pneumonia, respiratory panel as well as rapid COVID-19 test negative Continue on IV ceftriaxone and azithromycin Check sputum cultures 3. Hypertension, controlled, continue lisinopril 4. Nicotine dependence, on replacement 6. Severe caloric and protein malnutrition, dietitian consulted, on supplement 7. Debility, patient is hospice/palliative care appropriate, hospice consulted Charges/Coding Visit Charges Inpatient E&M: 17458 Subs Hosp L2
--- NOTE | 2021-07-26 10:24 | CASEMGMT ---
Physician spoke with patient about Hospice and she is unsure. Patient is afraid she will lose her aide from [employer] and she is afraid she will lose her disability. MARCUS called [facility] and spoke with Geno on the coverage line. Geno said patient can keep her aides even if she goes on Hospice. SW went to patient's room. Patient called her son and put him on speaker phone so he could hear what was being said. SW spoke with patient about Hospice and her concerns. SW assured her that she will not lose her aide. SW let patient know that SW called [facility] and asked that specific question. MARCUS also explained that by SW making a referral it does not commit patient to going on Hospice. It would simply be an informational meeting and then she could decide. Patient's son Charli asked if she would be able to come home on Hospice. SW told them both that she can, but Hospice will not be able to provide 24/7 care so we need to make sure family can handle the care. Both were agreeable to a referral being made and patient's son will expect a phone call. SW faxed referral to Hospice. MARCUS will follow up with a phone call in a bit. Bernadette Blanchard MSW JHOANA
[2021-07-26 11:25] LABS: Bedside Glucose 127 mg/dL (70-110)
--- NOTE | 2021-07-26 11:55 | CASEMGMT ---
MOJGAN CASTRO assessment: Face to Face with patient for initial transition planning/care coordination assessment. RN MATTHEW introduced self and role at [facility], pt voices understanding and consents to assessment. Pt is sitting up in bed on 3L nc in no distress. Pt is A/Ox4 and answers questions appropriately. Care providers, pharmacy, and demographics verified. Presentation: Tripodding/unresponsive upon EMS arrival-sat 40% on RA-family states was released home from SNF to use bipap but no bipap at home Admitting dx: Combined resp failure PCP: Visiting physicians Specialists: Tom Jones Preferred Pharmacy: [facility] Insurance: [employer] Prescription Benefit: [employer] Living Will/HPOA: Pt states does not have LW/HPOA but would like to complete HPOA at this time. Karlene VELAZQUEZ aware, voices understanding. LNOK: Charli Gold, son Living Arrangements: Pt lives with son and his GF in 1 story home with 1 step in and states no concerns at home. Pt states son/GF assist with ADL's. Transportation: Pt states family drives but rarely leaves home and states no transportation concerns. DME/HHC: Pt has the following DME: walker, w/c, BSC, hand held shower, grab bars and 3L home oxygen thru [employer]. See note from this RN MATTHEW regarding NIV set up thru [facility]. Pt states has not had HHC in past but has been to [facility]. Order was placed for Hospice c/s and pt/son would like to speak with them. Pt does have CM thru [employer], Christi, and states gets aide services thru [employer] 5 days/week for 3 hours daily. Pt voices no concerns with going home at time of discharge. Pt is retired. Pt states last smoked cigarette on 06/02/21 and states does not drink ETOH. Pt states no further concerns/needs. CM to follow for any further discharge planning/needs. Advised pt to ask for CM if any further questions/concerns/needs arise, voices understanding. Pt Goal: Home Plan: [place] MOJGAN CASTRO
--- NOTE | 2021-07-26 11:55 | CASEMGMT ---
MARCUS called Hospice and spoke with Sheron. They are working on scheduling a meeting with patient and family. Bernadette Blanchard DIRECTOR PHARMACOVIGILANCE JHOANA
--- NOTE | 2021-07-26 13:16 | CASEMGMT ---
SW completed Healthcare Power of Butt Maker (POA) papers with patient per her request. She named her son Charli Gold as her Healthcare POA. Copies were made and given to patient along with original. A copy was also placed in her chart. Bernadette ELY
--- NOTE | 2021-07-26 15:22 | CASEMGMT ---
MARCUS spoke with Makayla from Hospice and patient and her son will meet with Hospice tomorrow, Sunday- at 9a [facility]. MARCUS notified physician. Bernadette ELY
--- NOTE | 2021-07-26 16:35 | CASEMGMT ---
This RN MATTHEW contacted [facility] for further information regarding transition of care from their SNF unit to pt's home. This RN MATTHEW spoke with the [employer] who states he had attempted to facilitate a bipap for patient. States that pt's insurance did not accept the ABG testing from [facility] during her acute stay and required a sleep study and ABG results. Their repeat ABG results and overnight trending PO did not demonstrate an abnormality or a PO less than 88% for greater than 5 minutes (pt was only below 88% for 2 minutes). DanaeSCHAD Zullinger would not provide a bipap for pt due to pt not qualifying per insurance guidelines. Pt was seen by pulmonology the Sunday prior to her discharge to home on Sunday. Pt returned from appointment and stated the pulmonology office would be able to provide sufficient documentation for insurance to cover a bipap. The SNF physician and staff educated pt on need to remain compliant with O2 and other treatments for COPD upon discharge and pt expressed feeling comfortable discharging to home with intended future set-up of a bipap by pulmonology through [facility]. Pt requested to be discharged because if she stayed all of her social security would be taken except for $30. [employer] aware pt readmitted and bipap nor trilogy set-up. Robson Martin RN CM
[2021-07-26] MEDS: Ceftriaxone 1 GM/50 ML BAG IV (16:46)
[2021-07-26] MEDS: Azithromycin 250 MG Tablet 500 MG PO (16:47)
[2021-07-26 16:56] LABS: Bedside Glucose 130 mg/dL (70-110)
[2021-07-26 21:51] LABS: Bedside Glucose 136 mg/dL (70-110)
[2021-07-27] VITALS (16 sets, daily range): BP systolic 132–166; BP diastolic 75–88; PULSE 73–104; RESP 12–24; TEMP 36.6–36.9; O2SAT 95–100
[2021-07-27] MEDS: 0.9% Saline Lock 10 ML Syringe IV ×3 (05:35→14:47)
[2021-07-27 06:07] LABS: Absolute Lymphocyte Count 0.74 X10^3/uL (0.83-4.51); Absolute Neutrophil Count 7.4 X10^3/uL (2.0-7.7); Hematocrit 33.6 % (37-47); Hemoglobin 10.6 g/dL (12.0-15.0); Lymphocyte # 0.74 X10^3/ul (0.83-4.51); Lymphocyte % 8.3 % (19-41); Mean Corp Hgb Conc 31.5 g/dL (32-36); Mean Corpuscular Hgb 31.1 pg (27.0-32.0); Mean Corpuscular Volume 98.5 fL (81-99); Mean Platelet Vol. 9.3 fl (6.2-12.0); Monocyte# 0.66 X10^3/uL; Monocyte% 7.4 % (0-10); NRBC Flagged by Analyzer 0 % (0-5); Neutrophil # 7.43 X10^3/uL (2.7-7.7); Neutrophil % 83.8 % (47-70); Platelet Count 303 K/mm3 (150-450); RBC Distribution Width CV 13.1 % (11.6-14.6); RBC Distribution Width SD 47.5 fl (35.1-43.9); Red Blood Count 3.41 M/mm3 (4.2-5.4); White Blood Count 8.9 K/mm3 (4.4-11.0)
[2021-07-27] MEDS: Ipratropium/Albuterol Sulfate 3 ML AMPUL.NEB INHALATION ×4 (06:45→19:55)
[2021-07-27 06:50] LABS: Bedside Glucose 123 mg/dL (70-110)
[2021-07-27 06:53] LABS: ALB/GLOB Ratio 0.9 RATIO (0.9-2.4); AST(SGOT) 24 U/L (15-37); Alanine Aminotransfer ALT/SGPT 26 U/L (13-56); Albumin, Serum 2.9 g/dL (3.2-5.0); Alkaline Phosphatase 58 U/L (45-117); Anion Gap 3 (5-15); BUN 16 mg/dL (7-18); BUN/Creat Ratio 42.2 RATIO (10-20); Calcium,Total 9.5 mg/dL (8.5-10.1); Chloride 105 mmol/L (98-107); Creatinine, Serum 0.38 mg/dL (0.55-1.02); EST Glomerular Filtration Rate 182 mL/min (>60); Est Glom Filt Rate - Afr Amer 221 mL/min (>60); Estimated Creatinine Clearance 121.76 ml/min; Globulin 3.1 g/dL (2.2-4.2); Glucose 121 mg/dL (74-106); Potassium 4.1 mmol/L (3.5-5.1); Sodium Level 142 mmol/L (136-145)
[2021-07-27] MEDS: Ceftriaxone 1 GM/50 ML BAG IV (08:50)
[2021-07-27] MEDS: Azithromycin 250 MG Tablet 500 MG PO (08:51)
[2021-07-27] MEDS: Heparin Injection (Vial) 5,000 UNIT/ML VIAL 5000 UNIT SC ×2 (08:51→20:40)
[2021-07-27] MEDS: guaiFENesin 1,200 MG Tablet 1200 MG PO ×2 (08:51→20:40)
--- NOTE | 2021-07-27 10:15 | CASEMGMT ---
Patient and her son met with Gurvinder from Hospice. Patient signed papers for Hospice and wants to go home. Physician is aware. Hospice will have to arrange equipment to get delivered to the home. Therefore patient will be discharged home on Hospice tomorrow. MARCUS called Christi, patient's briefcase sewer with [employer] and left her a voice mail letting her know patient will be discharged tomorrow on Hospice. MARCUS made sure to say patient wants to keep her aides. Plan: d/c home on [facility]. Bernadette ELY
--- NOTE | 2021-07-27 11:04 | CASEMGMT ---
MOJGAN CASTRO NOTE: Pt is going home on Hospice and they will provide BIPAP for pt. TC to Marizol @ [facility]. She was notified NIV to be cancelled. Jac BURRISN MOJGAN CM
--- NOTE | 2021-07-27 11:31 | PCM.PN.HOSP ---
Subjective Subjective Follow-up on acute respiratory failure/acute COPD exacerbation: Patient was seen and examined. Hospice met with her and her son and they are agreeable to hospice. Hospice is working on a BiPAP machine. She stated that she still felt short of breath and unwell. Objective Data Objective Data Vital Signs: Vital Signs Temp Pulse Resp BP Pulse Ox 98.4 F 103 H 24 H 132/75 H 99 07/27/21 08:49 07/27/21 11:09 07/27/21 11:08 07/27/21 08:49 07/27/21 08:49 Oxygen Flow Rate (L/min) 4 Oxygen Delivery Method Nasal Cannula Weight: 50.9 kg Body Mass Index (BMI) 18.6 Intake & Output: Intake and Output for Last 24 Hours 07/25/21 07/26/21 07/27/21 23:59 23:59 23:59 Intake Total 770 / 970 1350 / 1850 650 / 650 Output Total 800 / 1060 1460 / 1760 700 / 700 Balance -30 / -90 -110 / 90 -50 / -50 Lab / Micro Data Result Diagrams: 07/27/21 05:12 07/27/21 05:30 Labs: Laboratory Results - last 24 hr 07/26/21 16:45: POC Glucose 130 H 07/26/21 20:39: POC Glucose 136 H 07/27/21 05:12: WBC 8.9, RBC 3.41 L, Hgb 10.6 L, Hct 33.6 L, MCV 98.5, MCH 31.1, MCHC 31.5 L, RDW Std Deviation 47.5 H, RDW Coeff of Rachell 13.1, Plt Count 303, MPV 9.3, Immature Gran % (Auto) 0.500, Neut % (Auto) 83.8 H, Lymph % (Auto) 8.3 L, [place] % (Auto) 7.4, Eos % (Auto) 0.0, Baso % (Auto) 0.0, Absolute Neuts (auto) 7.4, Absolute Lymphs (auto) 0.74 L, Nucleated RBC % 0 07/27/21 05:30: Sodium 142, Potassium 4.1, Chloride 105, Carbon Dioxide 34.0 H, Anion Gap 3 L, BUN 16, Creatinine 0.38 L, Estim Creat Clear Calc 121.76, Est GFR (MDRD) Af Amer 221, Est GFR (MDRD) Non-Af 182, BUN/Creatinine Ratio 42.2 H, Glucose 121 H, Calcium 9.5, Total Bilirubin 0.40, AST 24, ALT 26, Alkaline Phosphatase 58, Total Protein 6.0 L, Albumin 2.9 L, Globulin 3.1, Albumin/Globulin Ratio 0.9 07/27/21 06:29: POC Glucose 123 H Micro: Microbiology 07/24/21 22:50 Blood Culture (Wb) - Anticubital Right Blood Culture - Preliminary No growth in 48 hours. 07/24/21 00:12 Blood Culture (Wb) - Left Hand Blood Culture - Preliminary No growth in 48 hours. 07/25/21 Unknown Mucosa - Nose Respiratory Panel (PCR) - Final 07/24/21 22:55 Nasal Secretion SARS-CoV-2 Antigen (Rapid) - Final Physical Exam Narrative Physical exam: General: Alert, Oriented x3, Cooperative, No apparent distress, cachectic, on 3 L of oxygen HEENT: Atraumatic Oral: Moist Mucosa Neck: Supple Lungs: Diminished to auscultation, scattered wheezes Cardiovascular: HS I+II, regular, no murmurs Abdomen: Bowel Sounds Present, Soft, Non Tender Extremities: No edema Assessment & Plan Assessment/Plan (1) Pulmonary cachexia due to chronic obstructive pulmonary disease: PLAN: 1. Acute on chronic combined respiratory failure, in a patient with end-stage COPD Patient needs a BiPAP machine at home; hospice appropriate, will be discharged home with hospice, hospice team working on BiPAP On 3-4 L of oxygen now Continue on breathing treatments, IV Solu-Medrol, IV antibiotics -ceftriaxone/ azithromycin 2. Acute bilateral pneumonia, respiratory panel as well as rapid COVID-19 test negative Continue on IV ceftriaxone and azithromycin Follow-up on sputum cultures 3. Hypertension, controlled, continue lisinopril 4. Nicotine dependence, on replacement 6. Severe caloric and protein malnutrition, BMI 18.7, dietitian consulted, patient has been refusing nutritional supplement - Ensure 7. Debility, patient is hospice/palliative care appropriate, hospice consulted Charges/Coding Visit Charges Inpatient E&M: 18532 Subs Hosp L2
[2021-07-27] MEDS: oxyCODONE 5 MG Tablet PO (21:27)
[2021-07-28] VITALS (11 sets, daily range): BP systolic 112–160; BP diastolic 69–90; PULSE 63–102; RESP 12–22; TEMP 35.9–36.9; O2SAT 85–100
[2021-07-28] MEDS: Albuterol 2.5 MG/3 ML VIAL.NEB. INHALATION (04:55)
--- NOTE | 2021-07-28 10:30 | CASEMGMT ---
MARCUS received a call from Ela with Hospice and she was wondering when patient is leaving today. Ela said all equipment has been delivered to her home. MARCUS will have to let her know when orders go in. MARCUS notified physician that patient can be discharged. Bernadette ELY
[2021-07-28] MEDS: Ipratropium/Albuterol Sulfate 3 ML AMPUL.NEB INHALATION ×2 (10:32→14:28)
[2021-07-28] MEDS: Ceftriaxone 1 GM/50 ML BAG IV (10:40)
[2021-07-28] MEDS: guaiFENesin 1,200 MG Tablet 1200 MG PO (10:44)
[2021-07-28] MEDS: Azithromycin 250 MG Tablet 500 MG PO (10:44)
[2021-07-28] MEDS: Heparin Injection (Vial) 5,000 UNIT/ML VIAL 5000 UNIT SC (10:44)
--- NOTE | 2021-07-28 11:14 | PCM.DC ---
Discharge Instructions Diet Discharge Diet: No restrictions Activity Discharge Activity: Return to Normal Activity Follow Up Care Test Results: Test results from this visit will be discussed in further detail at your follow-up appointment, if applicable. Discharge Plan Admission Admit Date/Time: 07/25/21 01:34 Primary Reason for Your Visit: Respiratory failure/pneumonia/COPD exacerbation Attending Provider: Stephie Alfred Primary Care Provider: Care Physician,No Primary Consulting Providers: Anahy Garcia ; Fernandez Fonseca ; Shelley Reid ; Cindy aMck ; Rosie Matos ; Neena Zhou BLEND PLANT OPERATOR Instructions Additional Instructions / Restrictions: You are being discharged with oxygen. Continue to use your oxygen all the time. Continue to use your incentive spirometer. Continue to remain active and eat healthy.Be careful of going near open flames whilst on oxygen. Complete your prednisone taper as prescribed. Follow-up with pulmonology and your primary care doctor within 2 weeks. You are also being discharged home with home hospice. Your home BiPAP machine has been arranged. Discharge Orders/Prescriptions Prescriptions: New prednisone 10 mg tablet See Taper mg PO DAILY Qty: 30 RF: 0 Continued bisacodyl [Dulcolax (bisacodyl)] 10 mg suppository 10 mg CA DAILY PRN (Reason: Constipation) RF: 0 nicotine 7 mg/24 hr patch 24 hour 1 patch transdermal Q24H RF: 0 Advair HFA 230-21 mcg/actuation HFA aerosol inhaler 2 puff inhalation BID Qty: 12 RF: 6 (DME) spacer See Rx Instructions .ROUTE .MEDSUPPLY Qty: 1 RF: 0 Incruse Ellipta 62.5 mcg/actuation blister with device 1 inh INHALATION DAILY Qty: 30 RF: 6 albuterol sulfate 90 mcg/actuation HFA aerosol inhaler 2 puff INHALATION DAILY Qty: 8.5 RF: 6 acetaminophen [Tylenol] 325 mg Tablet 650 mg PO Q6H PRN PRN (Reason: Pain Score 1-10/Temp > 100.7 F) Qty: 0 RF: 0 triamcinolone acetonide 0.5 % Cream 1 applic topical BID Qty: 0 RF: 0 lisinopril 20 mg Tablet 20 mg PO DAILY Qty: 0 RF: 0 Mucus Relief ER 1,200 mg Tablet Extended Release 12hr 1,200 mg PO BID Qty: 0 RF: 0 Ensure Enlive 0.08 gram-1.5 kcal/mL Liquid 120 ml PO 4X/DAY Qty: 0 RF: 0 levofloxacin 500 mg tablet 500 mg PO DAILY 5 Days Qty: 5 RF: 0 ipratropium-albuterol 0.5 mg-3 mg(2.5 mg base)/3 mL solution for nebulization 3 ml inhalation Q4H PRN (Reason: shortness of breath or wheezing) Qty: 180 RF: 3 Referrals / Follow Up: Care Physician,No Primary [Primary Care Provider] - Within 2 Weeks Disposition Disposition (needs filled in before D/C Order can be placed): Hospice in Home
--- NOTE | 2021-07-28 11:16 | DS.PCM_ITS ---
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 Code(s): J44.9 - Chronic obstructive pulmonary disease, unspecified; R64 - Cachexia Medications at Discharge Home Medications Ensure Enlive 120 ml PO 4X/DAY #0 ml 06/09/21 Mucus Relief ER 1,200 mg PO BID #0 tab 06/09/21 acetaminophen [Tylenol] 650 mg PO Q6H PRN PRN #0 tab 06/09/21 lisinopril 20 mg PO DAILY #0 tab 06/09/21 triamcinolone acetonide 1 applic TOPICAL BID #0 g 06/09/21 albuterol sulfate 90 mcg/actuation aerosol inhaler 2 puff INHALATION DAILY #8.5 g 07/15/21 bisacodyl 10 mg rectal suppository 10 mg GA DAILY PRN 07/15/21 fluticasone propionate 230 mcg-salmeterol 21 mcg/actuation HFA inhaler 2 puff INHALATION BID #12 g 07/15/21 nicotine 7 mg/24 hr daily transdermal patch 1 patch TRANSDERMAL Q24H 07/15/21 spacer #1 ea 07/15/21 umeclidinium 62.5 mcg/actuation blister powder for inhalation 1 inh INHALATION DAILY #30 ea 07/15/21 ipratropium 0.5 mg-albuterol 3 mg (2.5 mg base)/3 mL nebulization soln 3 ml INHALATION Q4H PRN #180 ml 07/19/21 amoxicillin-pot clavulanate [Augmentin] 1 tab PO BID 5 Days #10 tab 07/28/21 prednisone See Taper PO DAILY #30 tab 07/28/21 Hospital Course Operations None Procedures None Summary of Care Provided Minutes Spent on Discharge: 40 Hospital Course: 61-year-old female with end-stage COPD/chronic respiratory failure who comes in with progressive shortness of breath and lethargy. Patient was found to be very lethargic. She was recently discharged from an extended care facility. BiPAP was possibly set up for her according to her son. This was not done. She was found to have an admitting PCO2 of 150. Her pH was 7.01. Patient was managed on BiPAP from the ED. A chest x-ray showed bilateral infiltrates worse on the left. Her rapid Covid 19 antigen test was negative. Patient was admitted to the PCU and managed on BiPAP. She was more awake by the next morning. She was continued on IV Solu-Medrol, IV antibiotics. She continued to improve and was on 4 L. Hospice was consulted and patient was accepted and will be followed up with hospice at home. BiPAP machine was arranged and was at home and at time of discharge. Patient will complete 5 more days of Augmentin as well as a prednisone taper. Physical Exam Narrative Physical exam: General: Alert, Oriented x3, Cooperative, No apparent distress, cachectic, on 3 L of oxygen HEENT: Atraumatic Oral: Moist Mucosa Neck: Supple Lungs: Diminished to auscultation, scattered wheezes Cardiovascular: HS I+II, regular, no murmurs Abdomen: Bowel Sounds Present, Soft, Non Tender Extremities: No edema Weight / BMI Weight Weight: 50.9 kg Body Mass Index (BMI) 18.6 ABG / Lab / Microbiology Data Result Diagrams: 07/27/21 05:12 07/27/21 05:30 Microbiology: Microbiology 07/24/21 22:50 Blood Culture (Wb) - Anticubital Right Blood Culture - Preliminary No growth in 48 hours. 07/24/21 00:12 Blood Culture (Wb) - Left Hand Blood Culture - Preliminary No growth in 48 hours. 07/25/21 Unknown Mucosa - Nose Respiratory Panel (PCR) - Final 07/24/21 22:55 Nasal Secretion SARS-CoV-2 Antigen (Rapid) - Final D/C Instructions Discharge Diet: No restrictions Meaningful Use Info Meaningful Use Diagnoses (Choose all that apply): None applicable Discharge Plan Admission Admit Date/Time: 07/25/21 01:34 Primary Reason for Your Visit: Respiratory failure/pneumonia/COPD exacerbation Attending Provider: Stephie Alfred Primary Care Provider: Care Physician,No Primary Consulting Providers: Anahy Garcia ; Fernadnez Fonseca ; Shelley Reid ; Cindy Mack ; Rosie Matos ; Neena Zhou [employer] Instructions Additional Instructions / Restrictions: You are being discharged with oxygen. Continue to use your oxygen all the time. Continue to use your incentive spirometer. Continue to remain active and eat healthy.Be careful of going near open flames whilst on oxygen. Complete your prednisone taper as prescribed. Follow-up with pulmonology and your primary care doctor within 2 weeks. You are also being discharged home with home hospice. Your home BiPAP machine has been arranged. Discharge Orders/Prescriptions Prescriptions: New prednisone 10 mg tablet See Taper mg PO DAILY Qty: 30 RF: 0 amoxicillin-pot clavulanate [Augmentin] 500-125 mg tablet 1 tab PO BID 5 Days Qty: 10 RF: 0 Continued bisacodyl [Dulcolax (bisacodyl)] 10 mg suppository 10 mg GA DAILY PRN (Reason: Constipation) RF: 0 nicotine 7 mg/24 hr patch 24 hour 1 patch transdermal Q24H RF: 0 Advair HFA 230-21 mcg/actuation HFA aerosol inhaler 2 puff inhalation BID Qty: 12 RF: 6 (DME) spacer See Rx Instructions .ROUTE .MEDSUPPLY Qty: 1 RF: 0 Incruse Ellipta 62.5 mcg/actuation blister with device 1 inh INHALATION DAILY Qty: 30 RF: 6 albuterol sulfate 90 mcg/actuation HFA aerosol inhaler 2 puff INHALATION DAILY Qty: 8.5 RF: 6 acetaminophen [Tylenol] 325 mg Tablet 650 mg PO Q6H PRN PRN (Reason: Pain Score 1-10/Temp > 100.7 F) Qty: 0 RF: 0 triamcinolone acetonide 0.5 % Cream 1 applic topical BID Qty: 0 RF: 0 lisinopril 20 mg Tablet 20 mg PO DAILY Qty: 0 RF: 0 Mucus Relief ER 1,200 mg Tablet Extended Release 12hr 1,200 mg PO BID Qty: 0 RF: 0 Ensure Enlive 0.08 gram-1.5 kcal/mL Liquid 120 ml PO 4X/DAY Qty: 0 RF: 0 ipratropium-albuterol 0.5 mg-3 mg(2.5 mg base)/3 mL solution for nebulization 3 ml inhalation Q4H PRN (Reason: shortness of breath or wheezing) Qty: 180 RF: 3 Discontinued levofloxacin 500 mg tablet 500 mg PO DAILY Qty: 1 RF: 0 Referrals / Follow Up: Care Physician,No Primary [Primary Care Provider] - Within 2 Weeks Disposition Disposition (needs filled in before D/C Order can be placed): Hospice in Home Charges/Coding Visit Charges Inpatient E&M: 65120 Disch Hosp
--- NOTE | 2021-07-28 12:59 | NURSING ---
report given to house nurse Leah
--- NOTE | 2021-07-28 14:36 | CASEMGMT ---
MARCUS spoke with patient and she will need transportation home. MARCUS confirmed her address. MARCUS arranged for patient to get picked up at 2p via cot by [facility]. 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 MARCUS called patient's son and let him know as well. Patient, RN, and construction secretary are aware. MARCUS called [facility] and let Geno on the coverage line know that patient is going home on Hospice today. MARCUS told Geno patient wants to keep her aides and she is worried about this. Geno said she will call them right now and update them. Plan: d/c home on [facility]. [facility] transported via cot. Bernadette ELY
--- NOTE | 2021-07-28 14:49 | CASEMGMT ---
[facility] running late. They are estimating they will be at [facility] between [id number]. MARCUS called Hospice and let Gurvinder know this information. MARCUS also called patient's son and let him know. Bernadette ELY
== END 2021-07-28 15:57 | disposition hospice, home (50) | DRG 189 ==
LOC: ED 22:52 → PCU 07-25 02:12
PROVIDERS: Admitting Provider Internal Medicine; Emergency Provider Emergency Medicine; Visit Provider Internal Medicine
DX: J96.21 Acute and chronic respiratory failure with hypoxia (principal); J18.9 Pneumonia, unspecified organism; J43.9 Emphysema, unspecified; E43 Unspecified severe protein-calorie malnutrition; E87.2 Acidosis; Z68.1 Body mass index [BMI] 19.9 or less, adult; J96.22 Acute and chronic respiratory failure with hypercapnia; I10 Essential (primary) hypertension; R73.9 Hyperglycemia, unspecified; Z99.81 Dependence on supplemental oxygen; Z20.822 Contact with and (suspected) exposure to COVID-19; F17.210 Nicotine dependence, cigarettes, uncomplicated; Z66 Do not resuscitate; Z79.899 Other long term (current) drug therapy
CPT/HCPCS: 36415; 36600; 71045; 80048; 80053; 82803; 82962; 83605; 84484; 85025; 87040; 87426; 87633; 87635; 93005; 94002; 94003; 94640; 97162; 97166; 97802; 99285; 99406; U0005; A4216; U0003